=== PATIENT | male | born 1955 | race Caucasian/White ===

== ENCOUNTER 2020-09-16 15:28 | Observation (INO) ==
[2020-09-16] MEDS ORDERED: MORPHINE 2 MG/1 ML SYRINGE IV ONE (16:05)
[2020-09-16] MEDS ORDERED: ONDANSETRON 4 MG/2 ML VIAL IV ONE (16:05)
[2020-09-16 16:11] LABS: Basophils % 0.6 % (0.0-0.8); Eosinophils % 0.6 % (0.00-10.9); Hemoglobin 14.9 GM/DL (14.0-18.0); Immature Granulocytes % 0.9 %; Immature Granulocytes Absolute 0.03 #; Lymphocytes # 0.9 10*3/uL (1.4-4.0); Lymphocytes % 27.7 % (21.2-54.2); Mean Corpuscular HGB Conc 33.9 GM/DL (32-36); Mean Corpuscular Volume 89.8 FL (87-102); Mean Platelet Volume 10.1 FL (9.6-12.0); Monocytes % 22.1 % (1.7-12.7); Neutrophils % 48.1 % (38.7-73.9); Platelet Count 178 T/CUMM (130-400); Red Cell Distribution Width 12.9 % (9.3-17.3); White Blood Count 3.2 T/CUMM (4-12)
[2020-09-16 16:28] LABS: PT Patient Result 11.4 SECS (10.5-12.0)
[2020-09-16 16:31] LABS: Albumin 4.2 G/DL (3.4-5.0); Bilirubin,Total 0.6 MG/DL (0.20-1.00); Osmolality,Calculated 279.8 MOS/KG (273-304); Total Protein 7.7 G/DL (6.4-8.2)
[2020-09-16 16:40] LABS: Band Neutrophils 1 % (0-10); Eosinophils 1 % (0-10); Lymphocytes 30 % (20-55); Platelet Estimate Adequate; Segmented Neutrophils 43 % (50-85); Total Cells Counted 100
[2020-09-16] MEDS ORDERED: LORazepam 2 MG/1 ML VIAL IV STA (16:44)
[2020-09-16] MEDS ORDERED: ASPIRIN 325 MG TABLET PO STA (19:50)
[2020-09-16] MEDS ORDERED: ONDANSETRON 4 MG/2 ML VIAL IV PRN (21:14)
[2020-09-16] MEDS ORDERED: MELATONIN 3 MG TABLET PO PRN (21:14)
[2020-09-16] MEDS ORDERED: hydrALAZINE 20 MG/1 ML VIAL IV PRN (21:14)
[2020-09-16] MEDS ORDERED: NICOTINE 21 MG/24 HR PATCH TRANSDERM PRN (21:14)
[2020-09-16] MEDS ORDERED: ACETAMINOPHEN 325 MG TABLET PO PRN (21:14)
[2020-09-16] MEDS ORDERED: CALCIUM CARBONATE CHEW 500 MG TABLET PO PRN (21:14)
[2020-09-16] MEDS ORDERED: diphenhydrAMINE CAP 25 MG CAPSULE PO PRN (21:14)
[2020-09-16] MEDS ORDERED: MORPHINE 2 MG/1 ML SYRINGE IV PRN (21:14)
[2020-09-16] MEDS ORDERED: DEXTROSE 50% 25 GM/50 ML VIAL IV PRN (21:14)
[2020-09-16] MEDS ORDERED: guaiFENesin/DM ER 600-30 MG TABLET PO PRN (21:14)
[2020-09-16] MEDS ORDERED: GLUCAGON 1 MG VIAL IM PRN (21:14)
[2020-09-16] MEDS ORDERED: ENOXAPARIN 40 MG/0.4 ML SYRINGE SUBCUT SCH (21:30)
[2020-09-16 22:16] LABS: Risk Ratio 2.71; VLDL Cholesterol 15.2 MG/DL
[2020-09-16 22:18] LABS: Ferritin 108.3 ng/ml (26-388)
[2020-09-16] MEDS: SODIUM CHLORIDE 0.9% 1,000 ML IV SCH (22:51)
[2020-09-16 23:25] LABS: Bilirubin,Urine Negative (Negative); Blood, Urine Negative (Negative); Glucose,Urine (UA) >=500 mg/dL (Negative); Hyaline Casts,Urine 1 /LPF (0-3); Ketones,Urine 20 mg/dL (Negative); Mucus,Urine Occasional /LPF (Occasional); Nitrite,Urine Negative (Negative); Protein,Urine 100 MG/DL; RBC,Urine 1 /HPF (0-4); Sperm,Urine Occasional /HPF (Negative); Urine Appearance CLEAR (Clear); Urine Color Yellow (Yellow); Urine Specific Gravity 1.056 (1.001-1.035); Urine Urobilinogen < 2.0 EU/DL (0.2-1.0)
[2020-09-17] MEDS ORDERED: DEXAMETHASONE 4 MG/1 ML VIAL IV SCH (09:00)
[2020-09-17] MEDS ORDERED: FAMOTIDINE 20 MG TABLET PO SCH (09:00)
[2020-09-17] MEDS ORDERED: ZINC GLUCONATE 50 MG TABLET PO SCH (09:00)
[2020-09-17] MEDS ORDERED: CHOLECALCIFEROL 1,000 UNIT TABLET PO SCH (09:00)
[2020-09-17] MEDS ORDERED: AZITHROMYCIN 250 MG TABLET PO SCH (09:00)
[2020-09-17] MEDS ORDERED: CETIRIZINE 10 MG TABLET PO SCH (09:00)
[2020-09-17] MEDS ORDERED: ASCORBIC ACID 500 MG TABLET PO SCH (09:00)
[2020-09-17] MEDS ORDERED: INSULIN GLARGINE 100 UNIT/ML SUBCUT SCH (09:15)
[2020-09-17] MEDS ORDERED: DULAGLUTIDE 0.75 MG/0.5 ML SUBCUT SCH (09:15)
[2020-09-17] MEDS ORDERED: PANTOPRAZOLE 40 MG TABLET PO SCH (09:15)
[2020-09-17] MEDS ORDERED: lisinopriL 20 MG TABLET PO SCH (09:30)
[2020-09-17] MEDS ORDERED: ASPIRIN 325 MG TABLET PO SCH (09:30)
[2020-09-17] MEDS ORDERED: NEBIVOLOL 5 MG TABLET PO SCH (09:30)
[2020-09-17] MEDS ORDERED: RANOLAZINE 500 MG TABLET PO SCH (09:30)
[2020-09-17] MEDS ORDERED: BISOPROLOL 5 MG TABLET PO SCH (09:30)
[2020-09-17] MEDS ORDERED: FUROSEMIDE 20 MG TABLET PO SCH (09:30)
[2020-09-17] MEDS ORDERED: ROSUVASTATIN 20 MG TABLET PO SCH (09:30)
[2020-09-17] MEDS ORDERED: amLODIPine 10 MG TABLET PO SCH (09:30)
[2020-09-17] MEDS ORDERED: methylPREDNISolone SOD SUC 125 MG/2 ML VIAL IV PRN (10:00)
[2020-09-17] MEDS ORDERED: MECLIZINE 25 MG TABLET PO PRN (10:00)
[2020-09-17] MEDS ORDERED: ACETAMINOPHEN 325 MG TABLET PO PRN (10:00)
[2020-09-17] MEDS ORDERED: diphenhydrAMINE 50 MG/1 ML VIAL IV PRN ×2 (10:00)
[2020-09-17] MEDS ORDERED: ONDANSETRON 4 MG/2 ML VIAL IV PRN (10:00)
[2020-09-17] MEDS: INSULIN REGULAR 100 UNIT/ML SUBCUT SCH ×3 (10:38→17:30)
[2020-09-17] MEDS: SODIUM CHLORIDE 0.9% 1,000 ML IV SCH (12:58)
[2020-09-17] MEDS ORDERED: CASIRIVIMAB/IMDEVIMAB 1,200 MG in SODIUM CHLORIDE 0.9% 100 ML IV ONE (14:00)
[2020-09-17] MEDS ORDERED: SODIUM CHLORIDE 0.9% 200 ML IV SCH (14:00)
[2020-09-17] MEDS ORDERED: SODIUM CHLORIDE 0.9% 1,000 ML IV SCH (14:00)
[2020-09-17] MEDS ORDERED: METHOCARBAMOL 500 MG TABLET PO PRN (14:17)
[2020-09-17 15:51] VITALS: BP 156/76
[2020-09-17] MEDS ORDERED: CYCLOBENZAPRINE 10 MG TABLET PO ONE (16:54)
== END 2020-09-17 18:00 | disposition home health service (06) ==
LOC: N.EDINP 15:28 → N.ED 15:28 → SUATTDRO 21:39 → N.2E 22:01
PROVIDERS: ADMIT Internal Medicine; ATTEND Internal Medicine

== ENCOUNTER 2020-12-02 08:00 | Inpatient (IN) ==
[~2020-12-02 08:00] MED LIST: CLORAZEPATE 3.75 MG TABLET PO PRN; DEXTROSE 50% 25 GM/50 ML VIAL IV PRN; GLUCAGON 1 MG VIAL IM PRN; MORPHINE 2 MG/1 ML SYRINGE IV PRN; NITROGLYCERIN SL 0.4 MG TABLET SL PRN
[2020-12-02 13:11] LABS: Basophils % 0.6 % (0.0-0.8); Eosinophils # 0.2 10*3/uL (0.0-0.87); Hematocrit 38.8 VOL% (42.0-52.0); Hemoglobin 13.2 GM/DL (14.0-18.0); Immature Granulocytes % 0.6 %; Immature Granulocytes Absolute 0.04 #; Lymphocytes # 1.9 10*3/uL (1.4-4.0); Mean Corpuscular Volume 90.7 FL (87-102); Mean Platelet Volume 10.8 FL (9.6-12.0); Monocytes % 10.9 % (1.7-12.7); Neutrophils % 55.9 % (38.7-73.9); Platelet Count 200 T/CUMM (130-400); Red Blood Count 4.28 MC/CUMM (3.8-5.5); Red Cell Distribution Width 12.9 % (9.3-17.3); White Blood Count 6.4 T/CUMM (4-12)
[2020-12-02 13:34] LABS: Albumin 3.7 G/DL (3.4-5.0); Bilirubin,Total 0.5 MG/DL (0.20-1.00); Calcium 8.8 MG/DL (8.5-10.1); Potassium 4.4 MMOL/L (3.5-5.1)
[2020-12-02] MEDS: INSULIN REGULAR 100 UNIT/ML SUBCUT SCH ×3 (14:24→21:22)
[2020-12-02 15:26] LABS: ABG HCO3 24.3 MMOL/L (20-26); ABG Oxygen Saturation 94.4 % (95-100); ABG PCO2 43.7 MM HG (35-48); ABG PH 7.373 (7.35-7.45); ABG PO2 74.9 MM HG (80-95); ABG TCO2 22.6 MMOL/L (23-27)
[2020-12-02] MEDS: CHLORHEXIDINE 4% SOLN 118 ML BOTTLE TOP SCH ×2 (17:00→21:43)
[2020-12-02] MEDS: CHLORHEXIDINE 0.12% ORAL RINSE 60 ML BOTTLE SWISH/SPIT SCH ×2 (17:37→21:43)
[2020-12-02] MEDS ORDERED: NEBIVOLOL 5 MG TABLET PO SCH (21:00)
[2020-12-03] MEDS ORDERED: VANCOMYCIN 500 MG VIAL ONE (04:18)
[2020-12-03] MEDS ORDERED: VANCOMYCIN 1,000 MG VIAL ONE (04:18)
[2020-12-03] MEDS ORDERED: PAPAVERINE 60 MG/2 ML VIAL ONE (04:18)
[2020-12-03] MEDS: CHLORHEXIDINE 4% SOLN 118 ML BOTTLE TOP SCH (04:56)
[2020-12-03] MEDS ORDERED: CEFUROXIME INJ 1,500 MG in SODIUM CHLORIDE 0.9% 100 ML IV ONE (05:00)
[2020-12-03] MEDS ORDERED: FAMOTIDINE 20 MG TABLET PO ONE (06:00)
[2020-12-03] MEDS ORDERED: LORazepam 1 MG TABLET PO ONE (06:00)
[2020-12-03] MEDS ORDERED: HEPARIN/NACL 0.9% 2 UNITS/ML 1,000 UNIT/500 ML BAG IV ONE (06:07)
[2020-12-03] MEDS ORDERED: LACTATED RINGERS 1,000 ML IV ONE (06:07)
[2020-12-03] MEDS ORDERED: SODIUM CHLORIDE 0.9% 1,000 ML IV ONE (06:07)
[2020-12-03] MEDS ORDERED: MINERAL OIL/PETROLATUM OPH OINT 3.5 GM TUBE ONE (06:07)
[2020-12-03] MEDS ORDERED: AMINOCAPROIC ACID 5,000 MG/20 ML VIAL ONE ×2 (06:07→06:11)
[2020-12-03] MEDS ORDERED: MIDAZOLAM 10 MG/2 ML VIAL ONE ×3 (06:07→08:55)
[2020-12-03] MEDS ORDERED: SUFentanil 250 MCG/5 ML AMP ONE (06:07)
[2020-12-03] MEDS ORDERED: ETOMIDATE 40 MG/20 ML VIAL IV ONE (06:07)
[2020-12-03] MEDS ORDERED: VECURONIUM 10 MG VIAL IV ONE ×3 (06:07→09:34)
[2020-12-03] MEDS ORDERED: DESFLURANE 1 UNIT/15 MINUTE INH ONE (06:07)
[2020-12-03] MEDS ORDERED: SODIUM CHLORIDE 0.9% 500 ML IV ONE (06:07)
[2020-12-03] MEDS ORDERED: PHENYLEPHRINE DRIP 0 MG/0 ML PREMIX IV ONE (06:11)
[2020-12-03] MEDS ORDERED: PHENYLEPHRINE DRIP 20 MG/250 ML PREMIX IV ONE (06:11)
[2020-12-03 07:25] LABS: ABG HCO3 25.4 MMOL/L (20-26); ABG Oxygen Saturation 99.8 % (95-100); ABG PCO2 35.9 MM HG (35-48); ABG PH 7.446 (7.35-7.45); ABG TCO2 21.7 MMOL/L (23-27); Glucose Heart Surgery 255 MG/DL (74-106); Hematocrit Heart Surgery 38.2 PERCENT (42-52); Hemoglobin Heart Surgery 12.4 G/DL (14.0-18.0); Ionized Calcium Arterial 1.14 MMOL/L (1.21-1.46); PCO2 Patient Temp Arterial 35.9 MMHG; PH Patient Temp Arterial 7.446; Patient Temperature 37 CELCIUS; Potassium Heart/CVR 4.3 MMOL/L (3.5-5.1); Sodium Heart/CVR 139 MMOL/L (135-145)
[2020-12-03 07:30] LABS: Bilirubin,Urine Negative (Negative); Blood, Urine Negative (Negative); Glucose,Urine (UA) >=500 mg/dL (Negative); Ketones,Urine Negative (Negative); Mucus,Urine Occasional /LPF (Occasional); Nitrite,Urine Negative (Negative); Protein,Urine 100 MG/DL; RBC,Urine 1 /HPF (0-4); Urine Appearance CLEAR (Clear); Urine Color Yellow (Yellow); Urine Specific Gravity 1.023 (1.001-1.035); Urine Urobilinogen < 2.0 EU/DL (0.2-1.0)
[2020-12-03] MEDS ORDERED: PHENYLEPHRINE DRIP 40 MG/250 ML PREMIX IV ONE (08:53)
[2020-12-03] MEDS ORDERED: NITROPRUSSIDE 50 MG/2 ML VIAL ONE (08:54)
[2020-12-03 09:12] LABS: Hematocrit Heart Surgery 26.9 PERCENT (42-52); Hemoglobin Heart Surgery 8.6 G/DL (14.0-18.0); PCO2 Patient Temp Venous 37.6 MM HG; PH Patient Temp Venous 7.443; PO2 Patient Temp Venous 36.2 MM HG; Potassium Heart/CVR 5.8 MMOL/L (3.5-5.1); VBG Base Excess 1.8 MEQ/L (0-4); VBG HCO3 25.7 MEQ/L (24-28); VBG Oxygen Saturation 77.6 %; VBG PCO2 41.4 MMHG (41-51); VBG PH 7.414; VBG PO2 41.6 MMHG (17-40); VBG Total CO2 24.6 MMOL/L
[2020-12-03] MEDS ORDERED: CALCIUM CHLORIDE 1,000 MG/10 ML VIAL IV ONE (09:31)
[2020-12-03] MEDS ORDERED: SUFentanil 50 MCG/ML AMP ONE (09:32)
[2020-12-03 09:45] LABS: Hematocrit Heart Surgery 29.5 PERCENT (42-52); Hemoglobin Heart Surgery 9.5 G/DL (14.0-18.0); PCO2 Patient Temp Venous 35.1 MM HG; PH Patient Temp Venous 7.458; Potassium Heart/CVR 5.8 MMOL/L (3.5-5.1); VBG Base Excess 1.3 MEQ/L (0-4); VBG HCO3 25.4 MEQ/L (24-28); VBG Oxygen Saturation 81.7 %; VBG PCO2 40.6 MMHG (41-51); VBG PH 7.414; VBG PO2 45.5 MMHG (17-40); VBG Total CO2 23.8 MMOL/L
[2020-12-03] MEDS ORDERED: DEXTROSE 5% KCL 20 MEQ 20 MEQ/1,000 ML BAG IV ONE (10:32)
[2020-12-03] MEDS ORDERED: MANNITOL 100 GM/500 ML BAG IV ONE (10:32)
[2020-12-03] MEDS ORDERED: methylPREDNISolone SOD SUC 1,000 MG/8 ML VIAL ONE (10:32)
[2020-12-03] MEDS ORDERED: LIDOCAINE 2% 5 ML VIAL ONE (10:32)
[2020-12-03] MEDS ORDERED: ALBUMIN 25% 25 GM/100 ML VIAL IV ONE (10:32)
[2020-12-03] MEDS ORDERED: MAGNESIUM SULFATE 5 GM/10 ML VIAL IV ONE (10:32)
[2020-12-03] MEDS ORDERED: SODIUM BICARBONATE 50 MEQ/50 ML VIAL IV ONE (10:33)
[2020-12-03] MEDS ORDERED: PROTAMINE SULFATE 250 MG/25 ML VIAL IV ONE (10:33)
[2020-12-03] MEDS ORDERED: ALBUMIN 5% 12.5 GM/250 ML VIAL IV ONE (10:33)
[2020-12-03] MEDS ORDERED: FUROSEMIDE 20 MG/2 ML VIAL ONE (10:33)
[2020-12-03] MEDS ORDERED: HEPARIN 10,000 UNIT/10 ML VIAL ONE (10:33)
[2020-12-03] MEDS ORDERED: DOBUTamine 500 MG/250 ML PREMIX IV ONE ×2 (10:41→11:11)
[2020-12-03 10:46] LABS: ABG Base Excess -1.9 MMOL/L (-2.5-2.5); ABG HCO3 22.8 MMOL/L (20-26); ABG Oxygen Saturation 99.4 % (95-100); ABG PCO2 37.3 MM HG (35-48); ABG PH 7.391 (7.35-7.45); ABG TCO2 20.6 MMOL/L (23-27); Glucose Heart Surgery 380 MG/DL (74-106); Hematocrit Heart Surgery 30.6 PERCENT (42-52); Hemoglobin Heart Surgery 9.9 G/DL (14.0-18.0); Ionized Calcium Arterial 1.26 MMOL/L (1.21-1.46); PCO2 Patient Temp Arterial 37.3 MMHG; PH Patient Temp Arterial 7.391; Patient Temperature 37 CELCIUS; Potassium Heart/CVR 4.8 MMOL/L (3.5-5.1); Sodium Heart/CVR 133 MMOL/L (135-145)
[2020-12-03] MEDS ORDERED: DOBUTamine 500 MG/250 ML PREMIX IV SCH (11:00)
[2020-12-03] MEDS ORDERED: SEVOFLURANE 1 UNIT/15 MINUTE INH ONE (11:13)
[2020-12-03] MEDS: PHENYLEPHRINE DRIP 40 MG/250 ML PREMIX IV PRN (11:29)
[2020-12-03] MEDS: LACTATED RINGERS 250 ML IV PRN ×5 (11:29→21:07)
[2020-12-03] MEDS ORDERED: MIDAZOLAM 2 MG/2 ML VIAL IV PRN (11:43)
[2020-12-03] MEDS ORDERED: CHLORHEXIDINE 4% SOLN 118 ML BOTTLE TOP PRN (11:43)
[2020-12-03] MEDS ORDERED: NITROPRUSSIDE 100 MG in DEXTROSE 5% 250 ML IV PRN (11:43)
[2020-12-03] MEDS ORDERED: INSULIN REGULAR 100 UNIT/ML IV ONE ×2 (11:43→16:58)
[2020-12-03] MEDS ORDERED: ACETAMINOPHEN 650 MG SUPP RECTAL PRN (11:43)
[2020-12-03] MEDS ORDERED: VECURONIUM 10 MG VIAL IV PRN ×2 (11:43)
[2020-12-03] MEDS ORDERED: MIDAZOLAM 10 MG/2 ML VIAL IV PRN (11:43)
[2020-12-03] MEDS ORDERED: CALCIUM CHLORIDE 1,000 MG/10 ML SYRINGE IV PRN (11:43)
[2020-12-03] MEDS ORDERED: DEXTROSE 50% 25 GM/50 ML VIAL IV PRN ×2 (11:43)
[2020-12-03] MEDS ORDERED: MAGNESIUM SULF RIDER 4 GM/100 ML PREMIX IV PRN (11:43)
[2020-12-03] MEDS ORDERED: MAGNESIUM SULF RIDER 2 GM/50 ML PREMIX IV PRN (11:43)
[2020-12-03] MEDS ORDERED: POTASSIUM CHLORIDE RIDER 10 MEQ/100 ML PREMIX IV PRN (11:43)
[2020-12-03 11:57] LABS: ABG Base Excess -2.2 MMOL/L (-2.5-2.5); ABG HCO3 22.5 MMOL/L (20-26); ABG Oxygen Saturation 95.9 % (95-100); ABG PCO2 39.5 MM HG (35-48); ABG PO2 83.2 MM HG (80-95); ABG TCO2 20.7 MMOL/L (23-27); Glucose Heart Surgery 388 MG/DL (74-106); Hematocrit Heart Surgery 31.9 PERCENT (42-52); Hemoglobin Heart Surgery 10.3 G/DL (14.0-18.0)
[2020-12-03] MEDS ORDERED: NITROGLYCERIN DRIP 50 MG/250 ML BOTTLE IV PRN (11:57)
[2020-12-03 12:05] LABS: Basophils % 0.3 % (0.0-0.8); Eosinophils # 0.1 10*3/uL (0.0-0.87); Eosinophils % 0.9 % (0.00-10.9); Hematocrit 30.2 VOL% (42.0-52.0); Immature Granulocytes % 0.7 %; Immature Granulocytes Absolute 0.09 #; Lymphocytes # 2.2 10*3/uL (1.4-4.0); Lymphocytes % 17.5 % (21.2-54.2); Mean Corpuscular HGB Conc 33.1 GM/DL (32-36); Mean Corpuscular Volume 91.5 FL (87-102); Mean Platelet Volume 10.7 FL (9.6-12.0); Monocytes % 6.1 % (1.7-12.7); Neutrophils % 74.5 % (38.7-73.9); Platelet Count 176 T/CUMM (130-400); Red Cell Distribution Width 12.9 % (9.3-17.3)
[2020-12-03 12:06] LABS: White Blood Count 12.3 T/CUMM (4-12)
[2020-12-03 12:12] LABS: INR 1.2; PT Patient Result 13.1 SECS (10.5-12.0); Partial Thromboplastin Time 27.4 SECS (23.8-32.1)
[2020-12-03 12:20] LABS: CKMB % 5.3 %
[2020-12-03 12:22] LABS: High Sensitive Troponin I* 2688.3 ng/L (0-78)
[2020-12-03 12:23] LABS: Albumin 3.2 G/DL (3.4-5.0); Bilirubin,Total 0.9 MG/DL (0.20-1.00); Calcium 8.3 MG/DL (8.5-10.1); Osmolality,Calculated 293.7 MOS/KG (273-304); Total Protein 5.2 G/DL (6.4-8.2)
[2020-12-03] MEDS: SODIUM CHLORIDE 0.45% 1,000 ML IV SCH ×2 (12:53)
[2020-12-03] MEDS: INSULIN REGULAR DRIP 100 ML IV SCH ×2 (13:10→20:46)
[2020-12-03 13:30] LABS: ABG Base Excess -4.1 MMOL/L (-2.5-2.5); ABG Oxygen Saturation 97.6 % (95-100); ABG PCO2 38.6 MM HG (35-48); ABG PH 7.347 (7.35-7.45); ABG TCO2 19.3 MMOL/L (23-27); Glucose Heart Surgery 395 MG/DL (74-106); Hematocrit Heart Surgery 32.2 PERCENT (42-52); Hemoglobin Heart Surgery 10.4 G/DL (14.0-18.0); Potassium Heart/CVR 3.6 MMOL/L (3.5-5.1)
[2020-12-03] MEDS: POTASSIUM CHLORIDE RIDER 20 MEQ/100 ML PREMIX IV PRN ×3 (13:36→20:45)
[2020-12-03] MEDS: INSULIN REGULAR 100 UNIT/ML IV PRN ×4 (15:32→22:26)
[2020-12-03] MEDS: MORPHINE 10 MG/1 ML VIAL IV PRN (15:57)
[2020-12-03 16:42] LABS: ABG Base Excess -4.2 MMOL/L (-2.5-2.5); ABG HCO3 20.9 MMOL/L (20-26); ABG Oxygen Saturation 97.3 % (95-100); ABG PH 7.315 (7.35-7.45); ABG TCO2 19.9 MMOL/L (23-27); Glucose Heart Surgery 351 MG/DL (74-106); Hematocrit Heart Surgery 33.2 PERCENT (42-52); Hemoglobin Heart Surgery 10.8 G/DL (14.0-18.0)
[2020-12-03 18:15] LABS: ABG Base Excess -3.4 MMOL/L (-2.5-2.5); ABG HCO3 21.6 MMOL/L (20-26); ABG Oxygen Saturation 96.7 % (95-100); ABG PCO2 41.6 MM HG (35-48); ABG PH 7.337 (7.35-7.45); ABG PO2 92.6 MM HG (80-95); ABG TCO2 20.1 MMOL/L (23-27); Glucose Heart Surgery 319 MG/DL (74-106); Potassium Heart/CVR 4.1 MMOL/L (3.5-5.1)
[2020-12-03] MEDS ORDERED: INSULIN GLARGINE 100 UNIT/ML SUBCUT ONE (18:17)
[2020-12-03] MEDS ORDERED: FUROSEMIDE 40 MG/4 ML VIAL IV ONE (18:23)
[2020-12-03] MEDS: CEFUROXIME INJ 1,500 MG in SODIUM CHLORIDE 0.9% 100 ML IV SCH (18:44)
[2020-12-03 19:51] LABS: ABG Base Excess -5.7 MMOL/L (-2.5-2.5); ABG HCO3 19.7 MMOL/L (20-26); ABG Oxygen Saturation 96.8 % (95-100); ABG PCO2 39.8 MM HG (35-48); ABG PH 7.313 (7.35-7.45); ABG PO2 96.9 MM HG (80-95); ABG TCO2 18.3 MMOL/L (23-27); Glucose Heart Surgery 294 MG/DL (74-106); Hematocrit Heart Surgery 34.2 PERCENT (42-52); Hemoglobin Heart Surgery 11.1 G/DL (14.0-18.0); Potassium Heart/CVR 3.8 MMOL/L (3.5-5.1)
[2020-12-03] MEDS: ALBUMIN 5% 12.5 GM/250 ML VIAL IV PRN (20:36)
[2020-12-03 21:20] LABS: ABG HCO3 20.3 MMOL/L (20-26); ABG Oxygen Saturation 97.8 % (95-100); ABG PCO2 38.9 MM HG (35-48); ABG TCO2 18.7 MMOL/L (23-27); Glucose Heart Surgery 282 MG/DL (74-106); Hematocrit Heart Surgery 32.4 PERCENT (42-52); Hemoglobin Heart Surgery 10.5 G/DL (14.0-18.0); Potassium Heart/CVR 4.6 MMOL/L (3.5-5.1)
[2020-12-03 22:03] LABS: CKMB % 4.9 %
[2020-12-03 22:06] LABS: High Sensitive Troponin I* 37427.8 ng/L (0-78)
[2020-12-03 22:24] LABS: ABG Base Excess -4.2 MMOL/L (-2.5-2.5); ABG HCO3 20.9 MMOL/L (20-26); ABG Oxygen Saturation 97.5 % (95-100); ABG PCO2 43.1 MM HG (35-48); ABG PH 7.314 (7.35-7.45); Glucose Heart Surgery 268 MG/DL (74-106); Hematocrit Heart Surgery 32.7 PERCENT (42-52); Hemoglobin Heart Surgery 10.6 G/DL (14.0-18.0); Potassium Heart/CVR 4.1 MMOL/L (3.5-5.1)
[2020-12-03] MEDS: ONDANSETRON 4 MG/2 ML VIAL IV PRN (22:26)
[2020-12-03 23:47] LABS: ABG Base Excess -2.2 MMOL/L (-2.5-2.5); ABG HCO3 22.6 MMOL/L (20-26); ABG Oxygen Saturation 97.7 % (95-100); ABG PCO2 41.1 MM HG (35-48); ABG PH 7.359 (7.35-7.45); Glucose Heart Surgery 245 MG/DL (74-106); Hematocrit Heart Surgery 32.5 PERCENT (42-52); Hemoglobin Heart Surgery 10.5 G/DL (14.0-18.0); Potassium Heart/CVR 4.2 MMOL/L (3.5-5.1)
[2020-12-04] MEDS: CHLORHEXIDINE 0.12% ORAL RINSE 60 ML BOTTLE SWISH/SPIT SCH ×4 (00:18→20:33)
[2020-12-04] MEDS: INSULIN REGULAR 100 UNIT/ML IV PRN ×2 (00:47→01:26)
[2020-12-04] MEDS ORDERED: FUROSEMIDE 40 MG/4 ML VIAL IV ONE ×3 (01:07→15:39)
[2020-12-04] MEDS: MORPHINE 10 MG/1 ML VIAL IV PRN (01:10)
[2020-12-04 02:03] LABS: ABG Base Excess -1.4 MMOL/L (-2.5-2.5); ABG HCO3 23.2 MMOL/L (20-26); ABG Oxygen Saturation 96.8 % (95-100); ABG PCO2 46.1 MM HG (35-48); ABG PH 7.336 (7.35-7.45); ABG PO2 92.5 MM HG (80-95); ABG TCO2 22.5 MMOL/L (23-27); Glucose Heart Surgery 203 MG/DL (74-106); Hematocrit Heart Surgery 31.5 PERCENT (42-52); Hemoglobin Heart Surgery 10.2 G/DL (14.0-18.0); Potassium Heart/CVR 3.9 MMOL/L (3.5-5.1)
[2020-12-04] MEDS: INSULIN REGULAR DRIP 100 ML IV SCH (02:57)
[2020-12-04 04:00] LABS: ABG Base Excess 0.4 MMOL/L (-2.5-2.5); ABG HCO3 24.8 MMOL/L (20-26); ABG Oxygen Saturation 96.5 % (95-100); ABG PCO2 45.6 MM HG (35-48); ABG PH 7.366 (7.35-7.45); ABG PO2 86.4 MM HG (80-95); ABG TCO2 23.7 MMOL/L (23-27); Glucose Heart Surgery 146 MG/DL (74-106); Hematocrit Heart Surgery 32.2 PERCENT (42-52); Hemoglobin Heart Surgery 10.4 G/DL (14.0-18.0); Potassium Heart/CVR 3.8 MMOL/L (3.5-5.1)
[2020-12-04 04:02] LABS: Basophils % 0.1 % (0.0-0.8); Hematocrit 30.2 VOL% (42.0-52.0); Immature Granulocytes % 0.7 %; Lymphocytes # 0.9 10*3/uL (1.4-4.0); Lymphocytes % 5.9 % (21.2-54.2); Mean Corpuscular HGB Conc 33.1 GM/DL (32-36); Mean Corpuscular Volume 92.4 FL (87-102); Mean Platelet Volume 10.6 FL (9.6-12.0); Neutrophils % 84.3 % (38.7-73.9); Platelet Count 155 T/CUMM (130-400); Red Blood Count 3.27 MC/CUMM (3.8-5.5); Red Cell Distribution Width 13.2 % (9.3-17.3); White Blood Count 15.2 T/CUMM (4-12)
[2020-12-04 04:23] LABS: Albumin 3.6 G/DL (3.4-5.0); Bilirubin,Direct 0.13 MG/DL (0.0-0.20); Bilirubin,Total 0.7 MG/DL (0.20-1.00); Calcium 8.7 MG/DL (8.5-10.1); Osmolality,Calculated 286.3 MOS/KG (273-304); Potassium 3.9 MMOL/L (3.5-5.1); Total Protein 5.9 G/DL (6.4-8.2)
[2020-12-04 04:36] LABS: CKMB % 5.7 %
[2020-12-04 04:39] LABS: High Sensitive Troponin I* 57410.7 ng/L (0-78)
[2020-12-04] MEDS: CEFUROXIME INJ 1,500 MG in SODIUM CHLORIDE 0.9% 100 ML IV SCH ×2 (06:00→18:16)
[2020-12-04] MEDS: POTASSIUM CHLORIDE RIDER 20 MEQ/100 ML PREMIX IV PRN (06:08)
[2020-12-04] MEDS ORDERED: KETOROLAC 30 MG/1 ML VIAL IV ONE (07:00)
[2020-12-04] MEDS ORDERED: INSULIN GLARGINE 100 UNIT/ML SUBCUT SCH (08:51)
[2020-12-04] MEDS ORDERED: METOPROLOL TARTRATE 25 MG TABLET PO SCH (09:00)
[2020-12-04] MEDS: PANTOPRAZOLE 40 MG TABLET PO SCH (09:09)
[2020-12-04] MEDS: ASPIRIN EC 81 MG TABLET PO SCH (09:09)
[2020-12-04] MEDS: INSULIN REGULAR 100 UNIT/ML SUBCUT SCH (09:17)
[2020-12-04] MEDS: VITAMIN E 1000 UNIT CAPSULE PO SCH ×2 (09:40→20:34)
[2020-12-04] MEDS: PHENYLEPHRINE DRIP 40 MG/250 ML PREMIX IV PRN ×2 (10:25→21:41)
[2020-12-04] MEDS: ALBUMIN 5% 12.5 GM/250 ML VIAL IV PRN ×3 (11:23→19:50)
[2020-12-04] MEDS ORDERED: INSULIN LISPRO 100 UNIT/ML SUBCUT SCH (11:30)
[2020-12-04] MEDS: KETOROLAC 30 MG/1 ML VIAL IV SCH ×2 (12:00→18:18)
[2020-12-04 13:11] LABS: CKMB % 5.9 %; High Sensitive Troponin I* 66471.1 ng/L (0-78)
[2020-12-04] MEDS: HYDROmorphone 2 MG/1 ML VIAL IV PRN (13:31)
[2020-12-04] MEDS: SODIUM CHLORIDE 0.45% 1,000 ML IV SCH ×3 (13:50→20:31)
[2020-12-04] MEDS ORDERED: DEXTROSE 50% 25 GM/50 ML VIAL IV ONE (14:10)
[2020-12-04] MEDS ORDERED: INSULIN REGULAR 100 UNIT/ML IV ONE (14:10)
[2020-12-04] MEDS: DOBUTamine 500 MG/250 ML PREMIX IV PRN (14:21)
[2020-12-04] MEDS: SODIUM CHLORIDE 0.9% 1,000 ML IV SCH ×2 (14:22→14:23)
[2020-12-04 15:59] LABS: ABG Base Excess -3.3 MMOL/L (-2.5-2.5); ABG HCO3 21.5 MMOL/L (20-26); ABG Oxygen Saturation 90.3 % (95-100); ABG PH 7.334 (7.35-7.45); ABG PO2 64.2 MM HG (80-95); ABG TCO2 20.7 MMOL/L (23-27); Glucose Heart Surgery 405 MG/DL (74-106); Hematocrit Heart Surgery 27.8 PERCENT (42-52); Potassium Heart/CVR 5.3 MMOL/L (3.5-5.1)
[2020-12-04 16:05] LABS: VBG Base Excess -3.3 MEQ/L (0-4); VBG HCO3 21.4 MEQ/L (24-28); VBG PCO2 46.2 MMHG (41-51); VBG PH 7.306; VBG PO2 47.1 MMHG (17-40); VBG Total CO2 21.5 MMOL/L
[2020-12-04] MEDS: INSULIN LISPRO 100 UNIT/ML SUBCUT SCH ×3 (16:36→20:32)
[2020-12-04 17:21] LABS: CKMB % 5.7 %
[2020-12-04 17:24] LABS: High Sensitive Troponin I* 58444.3 ng/L (0-78)
[2020-12-04] MEDS: FUROSEMIDE INJ 100 MG in SODIUM CHLORIDE 0.9% 90 ML IV SCH ×2 (17:32→22:22)
[2020-12-04] MEDS ORDERED: INSULIN GLARGINE 100 UNIT/ML SUBCUT ONE (18:33)
[2020-12-04] MEDS ORDERED: INSULIN LISPRO 100 UNIT/ML SUBCUT ONE (18:36)
[2020-12-04] MEDS ORDERED: ALBUMIN 25% 12.5 GM/50 ML VIAL IV ONE (19:25)
[2020-12-05] MEDS: KETOROLAC 30 MG/1 ML VIAL IV SCH ×2 (00:54→06:08)
[2020-12-05] MEDS: ONDANSETRON 4 MG/2 ML VIAL IV PRN (00:54)
[2020-12-05] MEDS: HYDROmorphone 2 MG/1 ML VIAL IV PRN ×2 (00:55→17:19)
[2020-12-05] MEDS: ALBUMIN 5% 12.5 GM/250 ML VIAL IV PRN ×3 (02:16→10:55)
[2020-12-05] MEDS: FUROSEMIDE INJ 100 MG in SODIUM CHLORIDE 0.9% 90 ML IV SCH ×2 (03:22→08:36)
[2020-12-05 03:36] LABS: Basophils % 0.1 % (0.0-0.8); Hematocrit 26.9 VOL% (42.0-52.0); Hemoglobin 8.5 GM/DL (14.0-18.0); Immature Granulocytes % 0.6 %; Lymphocytes # 2.2 10*3/uL (1.4-4.0); Mean Corpuscular HGB Conc 31.6 GM/DL (32-36); Mean Corpuscular Volume 96.8 FL (87-102); Mean Platelet Volume 10.7 FL (9.6-12.0); Monocytes % 10.2 % (1.7-12.7); Neutrophils % 75.1 % (38.7-73.9); Platelet Count 130 T/CUMM (130-400); Red Blood Count 2.78 MC/CUMM (3.8-5.5); Red Cell Distribution Width 13.7 % (9.3-17.3); White Blood Count 15.5 T/CUMM (4-12)
[2020-12-05 03:53] LABS: Albumin 3.4 G/DL (3.4-5.0); Bilirubin,Direct 0.14 MG/DL (0.0-0.20); Bilirubin,Total 0.4 MG/DL (0.20-1.00); Calcium 7.9 MG/DL (8.5-10.1); Osmolality,Calculated 292.5 MOS/KG (273-304); Potassium 4.1 MMOL/L (3.5-5.1)
[2020-12-05] MEDS: oxyCODONE/ACETAMINOPHEN 5-325 MG TABLET PO PRN ×2 (05:28→21:16)
[2020-12-05] MEDS ORDERED: FUROSEMIDE 40 MG/4 ML VIAL IV ONE (06:00)
[2020-12-05] MEDS: INSULIN GLARGINE 100 UNIT/ML SUBCUT SCH ×2 (07:47→21:06)
[2020-12-05] MEDS: INSULIN LISPRO 100 UNIT/ML SUBCUT SCH ×4 (07:48→21:07)
[2020-12-05] MEDS: ASPIRIN EC 81 MG TABLET PO SCH (08:02)
[2020-12-05] MEDS: PANTOPRAZOLE 40 MG TABLET PO SCH (08:02)
[2020-12-05] MEDS: CHLORHEXIDINE 0.12% ORAL RINSE 60 ML BOTTLE SWISH/SPIT SCH ×2 (08:05→21:07)
[2020-12-05] MEDS ORDERED: FUROSEMIDE 40 MG/4 ML VIAL IV SCH (09:00)
[2020-12-05] MEDS: VITAMIN E 1000 UNIT CAPSULE PO SCH ×2 (09:07→21:17)
[2020-12-05] MEDS ORDERED: CLORAZEPATE 3.75 MG TABLET PO ONE (10:11)
[2020-12-05] MEDS ORDERED: SODIUM CHLORIDE 0.9% 500 ML IV SCH (10:30)
[2020-12-05] MEDS: SODIUM CHLORIDE 0.9% 1,000 ML IV SCH ×2 (12:31→17:58)
[2020-12-05] MEDS: SODIUM CHLORIDE 0.45% 1,000 ML IV SCH ×2 (12:32)
[2020-12-05] MEDS: FUROSEMIDE 40 MG/4 ML VIAL IV SCH ×2 (13:12→21:06)
[2020-12-05] MEDS: DOBUTamine 500 MG/250 ML PREMIX IV PRN (14:45)
[2020-12-05] MEDS ORDERED: POLYETHYLENE GLYCOL POWDER 17 GM PACK PO PRN (17:17)
[2020-12-05] MEDS: DOCUSATE SODIUM 100 MG CAPSULE PO SCH ×2 (17:58→21:06)
[2020-12-05] MEDS ORDERED: INSULIN GLARGINE 100 UNIT/ML SUBCUT SCH (21:00)
[2020-12-06] MEDS: HYDROmorphone 2 MG/1 ML VIAL IV PRN (02:12)
[2020-12-06] MEDS: SODIUM CHLORIDE 0.9% 1,000 ML IV SCH ×3 (03:28→23:34)
[2020-12-06 04:41] LABS: Basophils % 0.1 % (0.0-0.8); Eosinophils % 0.1 % (0.00-10.9); Hematocrit 25.3 VOL% (42.0-52.0); Hemoglobin 8.1 GM/DL (14.0-18.0); Immature Granulocytes % 0.8 %; Immature Granulocytes Absolute 0.09 #; Lymphocytes # 1.8 10*3/uL (1.4-4.0); Lymphocytes % 15.3 % (21.2-54.2); Mean Corpuscular Volume 96.9 FL (87-102); Mean Platelet Volume 11.2 FL (9.6-12.0); Monocytes % 9.8 % (1.7-12.7); Neutrophils % 73.9 % (38.7-73.9); Platelet Count 119 T/CUMM (130-400); Red Blood Count 2.61 MC/CUMM (3.8-5.5); Red Cell Distribution Width 13.3 % (9.3-17.3)
[2020-12-06 05:01] LABS: Albumin 3.3 G/DL (3.4-5.0); Bilirubin,Direct 0.12 MG/DL (0.0-0.20); Bilirubin,Total 0.6 MG/DL (0.20-1.00); Calcium 7.7 MG/DL (8.5-10.1); Total Protein 5.9 G/DL (6.4-8.2)
[2020-12-06] MEDS: FUROSEMIDE 40 MG/4 ML VIAL IV SCH ×3 (05:32→21:03)
[2020-12-06] MEDS: oxyCODONE/ACETAMINOPHEN 5-325 MG TABLET PO PRN ×3 (06:28→19:39)
[2020-12-06] MEDS: CLORAZEPATE 3.75 MG TABLET PO PRN ×2 (06:51→20:58)
[2020-12-06] MEDS: INSULIN LISPRO 100 UNIT/ML SUBCUT SCH ×4 (07:48→20:57)
[2020-12-06] MEDS: INSULIN GLARGINE 100 UNIT/ML SUBCUT SCH ×2 (07:48→20:57)
[2020-12-06] MEDS: DOCUSATE SODIUM 100 MG CAPSULE PO SCH ×2 (08:08→20:56)
[2020-12-06] MEDS: PANTOPRAZOLE 40 MG TABLET PO SCH (08:09)
[2020-12-06] MEDS: ASPIRIN EC 81 MG TABLET PO SCH (08:09)
[2020-12-06] MEDS: CHLORHEXIDINE 0.12% ORAL RINSE 60 ML BOTTLE SWISH/SPIT SCH ×2 (08:10→20:58)
[2020-12-06] MEDS: VITAMIN E 1000 UNIT CAPSULE PO SCH ×2 (08:11→22:19)
[2020-12-07] MEDS: HYDROmorphone 2 MG/1 ML VIAL IV PRN (02:38)
[2020-12-07 04:09] LABS: Basophils % 0.2 % (0.0-0.8); Eosinophils # 0.1 10*3/uL (0.0-0.87); Eosinophils % 0.5 % (0.00-10.9); Hematocrit 25.1 VOL% (42.0-52.0); Immature Granulocytes % 0.9 %; Immature Granulocytes Absolute 0.11 #; Lymphocytes # 1.8 10*3/uL (1.4-4.0); Lymphocytes % 13.9 % (21.2-54.2); Mean Corpuscular HGB Conc 31.9 GM/DL (32-36); Mean Corpuscular Volume 96.2 FL (87-102); Mean Platelet Volume 11.3 FL (9.6-12.0); Monocytes % 9.3 % (1.7-12.7); Neutrophils % 75.2 % (38.7-73.9); Platelet Count 157 T/CUMM (130-400); Red Blood Count 2.61 MC/CUMM (3.8-5.5); Red Cell Distribution Width 13.2 % (9.3-17.3); White Blood Count 12.8 T/CUMM (4-12)
[2020-12-07 05:02] LABS: Calcium 7.7 MG/DL (8.5-10.1)
[2020-12-07] MEDS: FUROSEMIDE 40 MG/4 ML VIAL IV SCH ×3 (06:23→20:50)
[2020-12-07] MEDS: ONDANSETRON 4 MG/2 ML VIAL IV PRN (07:28)
[2020-12-07] MEDS: ASPIRIN EC 81 MG TABLET PO SCH (08:11)
[2020-12-07] MEDS: PANTOPRAZOLE 40 MG TABLET PO SCH (08:11)
[2020-12-07] MEDS: DOCUSATE SODIUM 100 MG CAPSULE PO SCH ×2 (08:11→20:49)
[2020-12-07] MEDS: INSULIN GLARGINE 100 UNIT/ML SUBCUT SCH ×2 (08:12→20:51)
[2020-12-07] MEDS: oxyCODONE/ACETAMINOPHEN 5-325 MG TABLET PO PRN ×3 (08:12→20:49)
[2020-12-07] MEDS: INSULIN LISPRO 100 UNIT/ML SUBCUT SCH ×4 (08:13→20:50)
[2020-12-07] MEDS: CHLORHEXIDINE 0.12% ORAL RINSE 60 ML BOTTLE SWISH/SPIT SCH ×2 (08:13→20:51)
[2020-12-07 09:08] LABS: Hematocrit Heart Surgery 29.2 PERCENT (42-52); Hemoglobin Heart Surgery 9.4 G/DL (14.0-18.0); PCO2 Patient Temp Venous 44.6 MM HG; PH Patient Temp Venous 7.344; PO2 Patient Temp Venous 29.1 MM HG; Potassium Heart/CVR 4.3 MMOL/L (3.5-5.1); VBG Base Excess -1.5 MEQ/L (0-4); VBG HCO3 22.3 MEQ/L (24-28); VBG Oxygen Saturation 41.5 %; VBG PCO2 44.6 MMHG (41-51); VBG PH 7.344; VBG PO2 29.1 MMHG (17-40); VBG Total CO2 22.6 MMOL/L
[2020-12-07] MEDS: SODIUM CHLORIDE 0.9% 1,000 ML IV SCH ×2 (09:47→20:51)
[2020-12-07] MEDS: VITAMIN E 1000 UNIT CAPSULE PO SCH ×2 (09:48→21:01)
[2020-12-07] MEDS ORDERED: SODIUM PHOSPHATE ENEMA 133 ML BOTTLE RECTAL PRN (12:46)
[2020-12-07] MEDS: CLORAZEPATE 3.75 MG TABLET PO PRN (20:49)
[2020-12-08] MEDS: SODIUM CHLORIDE 0.9% 1,000 ML IV SCH (01:12)
[2020-12-08] MEDS: oxyCODONE/ACETAMINOPHEN 5-325 MG TABLET PO PRN ×4 (03:30→23:28)
[2020-12-08 04:01] LABS: Basophils % 0.2 % (0.0-0.8); Eosinophils # 0.1 10*3/uL (0.0-0.87); Eosinophils % 0.5 % (0.00-10.9); Hemoglobin 8.3 GM/DL (14.0-18.0); Immature Granulocytes % 1.1 %; Immature Granulocytes Absolute 0.15 #; Lymphocytes # 2.5 10*3/uL (1.4-4.0); Lymphocytes % 19.2 % (21.2-54.2); Mean Corpuscular HGB Conc 31.9 GM/DL (32-36); Mean Corpuscular Volume 95.2 FL (87-102); Mean Platelet Volume 10.8 FL (9.6-12.0); Monocytes % 12.1 % (1.7-12.7); NRBC # 0.03 10*3/uL; Neutrophils % 66.9 % (38.7-73.9); Platelet Count 185 T/CUMM (130-400); Red Blood Count 2.73 MC/CUMM (3.8-5.5); Red Cell Distribution Width 13.3 % (9.3-17.3); White Blood Count 13.2 T/CUMM (4-12)
[2020-12-08 04:11] LABS: Albumin 2.8 G/DL (3.4-5.0); Bilirubin,Total 0.4 MG/DL (0.20-1.00); Calcium 7.7 MG/DL (8.5-10.1); Osmolality,Calculated 287.7 MOS/KG (273-304); Potassium 3.7 MMOL/L (3.5-5.1); Total Protein 5.7 G/DL (6.4-8.2)
[2020-12-08] MEDS: INSULIN LISPRO 100 UNIT/ML SUBCUT SCH ×7 (08:33→20:46)
[2020-12-08] MEDS: INSULIN GLARGINE 100 UNIT/ML SUBCUT SCH (08:34)
[2020-12-08] MEDS: PANTOPRAZOLE 40 MG TABLET PO SCH (08:36)
[2020-12-08] MEDS: DOCUSATE SODIUM 100 MG CAPSULE PO SCH (08:36)
[2020-12-08] MEDS: ASPIRIN EC 81 MG TABLET PO SCH (08:36)
[2020-12-08] MEDS: FUROSEMIDE 40 MG/4 ML VIAL IV SCH (08:37)
[2020-12-08] MEDS: CHLORHEXIDINE 0.12% ORAL RINSE 60 ML BOTTLE SWISH/SPIT SCH ×2 (08:38→20:46)
[2020-12-08] MEDS: VITAMIN E 1000 UNIT CAPSULE PO SCH (08:39)
[2020-12-08] MEDS: HYDROmorphone 2 MG/1 ML VIAL IV PRN (11:00)
[2020-12-08] MEDS ORDERED: DEXTROSE 50% 25 GM/50 ML VIAL IV PRN ×2 (12:51)
[2020-12-08] MEDS ORDERED: MAGNESIUM SULF RIDER 2 GM/50 ML PREMIX IV PRN (12:51)
[2020-12-08] MEDS ORDERED: MAGNESIUM SULF RIDER 4 GM/100 ML PREMIX IV PRN (12:51)
[2020-12-08] MEDS ORDERED: ZALEPLON 5 MG CAPSULE PO PRN (12:51)
[2020-12-08] MEDS ORDERED: ACETAMINOPHEN 325 MG TABLET PO PRN (12:51)
[2020-12-08] MEDS ORDERED: GLUCAGON 1 MG VIAL IM PRN ×2 (12:51)
[2020-12-08] MEDS ORDERED: ALUMINUM/MAGNES/SIMETH MAX STR 30 ML UDCUP PO PRN (12:51)
[2020-12-08] MEDS ORDERED: SODIUM CHLOR 0.45% KCL 20 MEQ 20 MEQ/1,000 ML BAG IV SCH (12:51)
[2020-12-08] MEDS ORDERED: POTASSIUM CHLORIDE 20 MEQ TABLET PO PRN (12:51)
[2020-12-08] MEDS: MAGNESIUM OXIDE 400 MG TABLET PO SCH (20:45)
[2020-12-08] MEDS: ROSUVASTATIN 20 MG TABLET PO SCH (20:46)
[2020-12-08] MEDS: metFORMIN 500 MG TABLET PO SCH (20:46)
[2020-12-08] MEDS: NEBIVOLOL 5 MG TABLET PO SCH (20:46)
[2020-12-08] MEDS: VITAMIN E 400 UNIT CAPSULE PO SCH (20:46)
[2020-12-09] MEDS: FUROSEMIDE 40 MG/4 ML VIAL IV ONE ×2 (01:35→02:02)
[2020-12-09 02:44] LABS: Albumin 2.7 G/DL (3.4-5.0); Bilirubin,Direct 0.2 MG/DL (0.0-0.20); Bilirubin,Indirect 0.3 MG/DL (0.0-1.0); Bilirubin,Total 0.5 MG/DL (0.20-1.00); CKMB % 4.6 %; Osmolality,Calculated 289.1 MOS/KG (273-304); Potassium 4.4 MMOL/L (3.5-5.1); Total Protein 5.9 G/DL (6.4-8.2)
[2020-12-09 02:50] LABS: High Sensitive Troponin I* 21639.7 ng/L (0-78)
[2020-12-09] MEDS: oxyCODONE/ACETAMINOPHEN 5-325 MG TABLET PO PRN ×3 (03:56→13:35)
[2020-12-09] MEDS ORDERED: FUROSEMIDE 40 MG/4 ML VIAL IV ONE (06:00)
[2020-12-09] MEDS ORDERED: DOCUSATE SODIUM 100 MG CAPSULE PO SCH (09:00)
[2020-12-09] MEDS: FERROUS SULFATE 325 MG TABLET PO SCH (09:26)
[2020-12-09] MEDS: CLORAZEPATE 3.75 MG TABLET PO PRN (09:26)
[2020-12-09] MEDS: PANTOPRAZOLE 40 MG TABLET PO SCH (09:26)
[2020-12-09] MEDS: MAGNESIUM OXIDE 400 MG TABLET PO SCH ×2 (09:26→21:44)
[2020-12-09] MEDS: VITAMIN E 400 UNIT CAPSULE PO SCH ×2 (09:26→21:42)
[2020-12-09] MEDS: ASPIRIN EC 81 MG TABLET PO SCH ×2 (09:27→09:45)
[2020-12-09] MEDS: CHLORHEXIDINE 0.12% ORAL RINSE 60 ML BOTTLE SWISH/SPIT SCH ×2 (09:27→21:51)
[2020-12-09] MEDS: metFORMIN 500 MG TABLET PO SCH ×2 (09:27→21:43)
[2020-12-09] MEDS: CHOLECALCIFEROL 400 UNIT TABLET PO SCH (09:27)
[2020-12-09] MEDS: INSULIN LISPRO 100 UNIT/ML SUBCUT SCH ×7 (09:35→21:51)
[2020-12-09] MEDS: INSULIN GLARGINE 100 UNIT/ML SUBCUT SCH (09:44)
[2020-12-09] MEDS: FUROSEMIDE 40 MG/4 ML VIAL IV SCH (09:46)
[2020-12-09] MEDS ORDERED: KETOROLAC 30 MG/1 ML VIAL IV ONE (10:30)
[2020-12-09] MEDS: ACETAMINOPHEN 325 MG TABLET PO SCH ×3 (10:50→21:43)
[2020-12-09] MEDS: POLYETHYLENE GLYCOL POWDER 17 GM PACK PO SCH (10:50)
[2020-12-09] MEDS: TAMSULOSIN 0.4 MG CAPSULE PO SCH (21:44)
[2020-12-09] MEDS: NEBIVOLOL 5 MG TABLET PO SCH (21:52)
[2020-12-10] MEDS: oxyCODONE/ACETAMINOPHEN 5-325 MG TABLET PO PRN ×4 (02:09→21:21)
[2020-12-10] MEDS: ACETAMINOPHEN 325 MG TABLET PO SCH ×3 (04:35→17:19)
[2020-12-10 05:10] LABS: Albumin 2.4 G/DL (3.4-5.0); Bilirubin,Direct 0.16 MG/DL (0.0-0.20); Bilirubin,Indirect 0.2 MG/DL (0.0-1.0); Bilirubin,Total 0.4 MG/DL (0.20-1.00); CKMB % 3.4 %; Potassium 3.8 MMOL/L (3.5-5.1); Total Protein 5.5 G/DL (6.4-8.2)
[2020-12-10 05:11] LABS: High Sensitive Troponin I* 17864.6 ng/L (0-78)
[2020-12-10] MEDS: FERROUS SULFATE 325 MG TABLET PO SCH (09:37)
[2020-12-10] MEDS: VITAMIN E 400 UNIT CAPSULE PO SCH ×2 (09:37→21:17)
[2020-12-10] MEDS: DOCUSATE SODIUM 100 MG CAPSULE PO SCH ×2 (09:37→21:17)
[2020-12-10] MEDS: CHOLECALCIFEROL 400 UNIT TABLET PO SCH (09:38)
[2020-12-10] MEDS: PANTOPRAZOLE 40 MG TABLET PO SCH (09:38)
[2020-12-10] MEDS: MAGNESIUM OXIDE 400 MG TABLET PO SCH ×2 (09:40→21:17)
[2020-12-10] MEDS: metFORMIN 500 MG TABLET PO SCH ×2 (09:41→21:17)
[2020-12-10] MEDS: ASPIRIN EC 81 MG TABLET PO SCH ×2 (09:41→12:49)
[2020-12-10] MEDS: POLYETHYLENE GLYCOL POWDER 17 GM PACK PO SCH (09:42)
[2020-12-10] MEDS: INSULIN LISPRO 100 UNIT/ML SUBCUT SCH ×7 (09:42→21:19)
[2020-12-10] MEDS: INSULIN GLARGINE 100 UNIT/ML SUBCUT SCH (09:42)
[2020-12-10] MEDS: CHLORHEXIDINE 0.12% ORAL RINSE 60 ML BOTTLE SWISH/SPIT SCH ×2 (09:44→21:18)
[2020-12-10] MEDS: FUROSEMIDE 40 MG/4 ML VIAL IV SCH (09:44)
[2020-12-10] MEDS: NEBIVOLOL 5 MG TABLET PO SCH (21:17)
[2020-12-10] MEDS: TAMSULOSIN 0.4 MG CAPSULE PO SCH (21:18)
[2020-12-11] MEDS: ACETAMINOPHEN 325 MG TABLET PO PRN (00:42)
[2020-12-11] MEDS: oxyCODONE/ACETAMINOPHEN 5-325 MG TABLET PO PRN ×3 (02:40→21:33)
[2020-12-11] MEDS: POLYETHYLENE GLYCOL POWDER 17 GM PACK PO SCH (09:52)
[2020-12-11] MEDS: MAGNESIUM HYDROXIDE SUSP 30 ML UDCUP PO PRN (09:52)
[2020-12-11] MEDS: CLORAZEPATE 3.75 MG TABLET PO PRN ×2 (09:52→21:31)
[2020-12-11] MEDS: PANTOPRAZOLE 40 MG TABLET PO SCH (09:53)
[2020-12-11] MEDS: CHOLECALCIFEROL 400 UNIT TABLET PO SCH (09:53)
[2020-12-11] MEDS: metFORMIN 500 MG TABLET PO SCH ×2 (09:53→21:31)
[2020-12-11] MEDS: DOCUSATE SODIUM 100 MG CAPSULE PO SCH ×2 (09:53→21:31)
[2020-12-11] MEDS: FERROUS SULFATE 325 MG TABLET PO SCH (09:53)
[2020-12-11] MEDS: ASPIRIN EC 81 MG TABLET PO SCH (09:53)
[2020-12-11] MEDS: INSULIN GLARGINE 100 UNIT/ML SUBCUT SCH (09:54)
[2020-12-11] MEDS: MAGNESIUM OXIDE 400 MG TABLET PO SCH ×2 (09:54→21:32)
[2020-12-11] MEDS: INSULIN LISPRO 100 UNIT/ML SUBCUT SCH ×7 (09:55→21:33)
[2020-12-11] MEDS: FUROSEMIDE 40 MG/4 ML VIAL IV SCH (09:59)
[2020-12-11] MEDS: CHLORHEXIDINE 0.12% ORAL RINSE 60 ML BOTTLE SWISH/SPIT SCH ×2 (10:00→21:33)
[2020-12-11 10:56] LABS: Calcium 7.9 MG/DL (8.5-10.1); Osmolality,Calculated 291.9 MOS/KG (273-304); Potassium 4.9 MMOL/L (3.5-5.1)
[2020-12-11] MEDS ORDERED: SODIUM PHOSPHATE ENEMA 133 ML BOTTLE RECTAL PRN (13:17)
[2020-12-11] MEDS: VITAMIN E 400 UNIT CAPSULE PO SCH ×2 (14:37→21:31)
[2020-12-11] MEDS: ONDANSETRON 4 MG/2 ML VIAL IV PRN (14:48)
[2020-12-11] MEDS: TAMSULOSIN 0.4 MG CAPSULE PO SCH ×2 (17:43→21:32)
[2020-12-11] MEDS: NEBIVOLOL 5 MG TABLET PO SCH (21:32)
[2020-12-12 04:34] LABS: Basophils % 0.3 % (0.0-0.8); Eosinophils # 0.1 10*3/uL (0.0-0.87); Eosinophils % 0.6 % (0.00-10.9); Hematocrit 26.1 VOL% (42.0-52.0); Immature Granulocytes % 3.1 %; Immature Granulocytes Absolute 0.36 #; Lymphocytes # 1.6 10*3/uL (1.4-4.0); Lymphocytes % 13.7 % (21.2-54.2); Mean Corpuscular HGB Conc 30.7 GM/DL (32-36); Mean Corpuscular Volume 96.7 FL (87-102); Monocytes % 10.3 % (1.7-12.7); NRBC # 0.09 10*3/uL; Platelet Count 297 T/CUMM (130-400); Red Cell Distribution Width 13.7 % (9.3-17.3); White Blood Count 11.7 T/CUMM (4-12)
[2020-12-12 04:51] LABS: Alanine Aminotransferase 145 U/L (16-61); Albumin 2.5 G/DL (3.4-5.0); Alkaline Phosphatase 76 U/L (45-117); Aspartate Amino Transferase 34 U/L (0-37); Bilirubin,Indirect 0.2 MG/DL (0.0-1.0); Blood Urea Nitrogen 68 MG/DL (7-18); Calcium 8.3 MG/DL (8.5-10.1); Carbon Dioxide 25 MMOL/L (21-32); Estimated Glom Filtration Rate 72 ML/MIN; Glucose 95 MG/DL (74-106); Osmolality,Calculated 281.7 MOS/KG (273-304); Potassium 4.1 MMOL/L (3.5-5.1); Sodium 131 MMOL/L (136-145); Total Protein 6.2 G/DL (6.4-8.2)
[2020-12-12] MEDS: ACETAMINOPHEN 325 MG TABLET PO PRN ×2 (06:06→20:59)
[2020-12-12 06:41] LABS: Hypochromasia 1+; Lymphocytes 10 % (20-55); Nucleated Red Blood Cells 1 (0-5); Segmented Neutrophils 85 % (50-85); Total Cells Counted 100
[2020-12-12 06:42] LABS: Microcytosis 1+; Ovalocytes Slight; Platelet Estimate Normal; Polychromasia Slight
[2020-12-12] MEDS: INSULIN LISPRO 100 UNIT/ML SUBCUT SCH ×7 (09:51→21:00)
[2020-12-12] MEDS: INSULIN GLARGINE 100 UNIT/ML SUBCUT SCH (09:52)
[2020-12-12] MEDS: CHOLECALCIFEROL 400 UNIT TABLET PO SCH (09:53)
[2020-12-12] MEDS: POLYETHYLENE GLYCOL POWDER 17 GM PACK PO SCH (09:53)
[2020-12-12] MEDS: VITAMIN E 400 UNIT CAPSULE PO SCH ×2 (09:53→20:53)
[2020-12-12] MEDS: CLORAZEPATE 3.75 MG TABLET PO PRN ×2 (09:53→20:59)
[2020-12-12] MEDS: metFORMIN 500 MG TABLET PO SCH ×2 (09:54→20:52)
[2020-12-12] MEDS: PANTOPRAZOLE 40 MG TABLET PO SCH (09:54)
[2020-12-12] MEDS: ASPIRIN EC 81 MG TABLET PO SCH (09:54)
[2020-12-12] MEDS: FERROUS SULFATE 325 MG TABLET PO SCH (09:54)
[2020-12-12] MEDS: TAMSULOSIN 0.4 MG CAPSULE PO SCH ×2 (09:54→20:52)
[2020-12-12] MEDS: DOCUSATE SODIUM 100 MG CAPSULE PO SCH ×2 (09:54→20:51)
[2020-12-12] MEDS: CHLORHEXIDINE 0.12% ORAL RINSE 60 ML BOTTLE SWISH/SPIT SCH ×2 (09:59→21:00)
[2020-12-12] MEDS: FUROSEMIDE 40 MG/4 ML VIAL IV SCH (09:59)
[2020-12-12] MEDS: MAGNESIUM OXIDE 400 MG TABLET PO SCH ×2 (10:00→20:51)
[2020-12-12] MEDS: MAGNESIUM HYDROXIDE SUSP 30 ML UDCUP PO PRN (18:00)
[2020-12-12] MEDS: NEBIVOLOL 5 MG TABLET PO SCH (20:51)
[2020-12-13 06:30] LABS: Basophils % 0.2 % (0.0-0.8); Eosinophils # 0.1 10*3/uL (0.0-0.87); Eosinophils % 0.5 % (0.00-10.9); Hematocrit 25.2 VOL% (42.0-52.0); Hemoglobin 7.7 GM/DL (14.0-18.0); Immature Granulocytes % 2.6 %; Immature Granulocytes Absolute 0.31 #; Lymphocytes # 1.7 10*3/uL (1.4-4.0); Lymphocytes % 14.3 % (21.2-54.2); Mean Corpuscular HGB Conc 30.6 GM/DL (32-36); Mean Corpuscular Volume 96.6 FL (87-102); Mean Platelet Volume 10.6 FL (9.6-12.0); Monocytes % 9.6 % (1.7-12.7); NRBC # 0.09 10*3/uL; Neutrophils % 72.8 % (38.7-73.9); Platelet Count 300 T/CUMM (130-400); Red Blood Count 2.61 MC/CUMM (3.8-5.5); Red Cell Distribution Width 13.8 % (9.3-17.3); White Blood Count 12.1 T/CUMM (4-12)
[2020-12-13 07:05] LABS: Alanine Aminotransferase 111 U/L (16-61); Albumin 2.5 G/DL (3.4-5.0); Alkaline Phosphatase 82 U/L (45-117); Aspartate Amino Transferase 26 U/L (0-37); Bilirubin,Indirect 0.3 MG/DL (0.0-1.0); Blood Urea Nitrogen 88 MG/DL (7-18); Carbon Dioxide 25 MMOL/L (21-32); Estimated Glom Filtration Rate 46 ML/MIN; Glucose 142 MG/DL (74-106); Osmolality,Calculated 288.8 MOS/KG (273-304); Potassium 5.2 MMOL/L (3.5-5.1); Sodium 130 MMOL/L (136-145); Total Protein 5.8 G/DL (6.4-8.2)
[2020-12-13 07:43] LABS: Hypochromasia Slight; Lymphocytes 13 % (20-55); Nucleated Red Blood Cells 1 (0-5); Segmented Neutrophils 75 % (50-85); Total Cells Counted 100
[2020-12-13 07:44] LABS: Anisocytosis 1+; Microcytosis 1+; Ovalocytes Slight; Platelet Estimate Normal; Polychromasia Slight
[2020-12-13] MEDS: INSULIN LISPRO 100 UNIT/ML SUBCUT SCH ×7 (08:53→20:41)
[2020-12-13] MEDS: metFORMIN 500 MG TABLET PO SCH ×2 (10:02→20:41)
[2020-12-13] MEDS: FERROUS SULFATE 325 MG TABLET PO SCH (10:03)
[2020-12-13] MEDS: CHOLECALCIFEROL 400 UNIT TABLET PO SCH (10:03)
[2020-12-13] MEDS: PANTOPRAZOLE 40 MG TABLET PO SCH (10:03)
[2020-12-13] MEDS: TAMSULOSIN 0.4 MG CAPSULE PO SCH ×2 (10:03→20:40)
[2020-12-13] MEDS: CLORAZEPATE 3.75 MG TABLET PO PRN (10:03)
[2020-12-13] MEDS: VITAMIN E 400 UNIT CAPSULE PO SCH ×2 (10:03→20:40)
[2020-12-13] MEDS: ASPIRIN EC 81 MG TABLET PO SCH (10:04)
[2020-12-13] MEDS: DOCUSATE SODIUM 100 MG CAPSULE PO SCH ×2 (10:04→20:39)
[2020-12-13] MEDS: ACETAMINOPHEN 325 MG TABLET PO PRN ×2 (10:05→20:40)
[2020-12-13] MEDS: FUROSEMIDE 40 MG/4 ML VIAL IV SCH (10:10)
[2020-12-13] MEDS: POLYETHYLENE GLYCOL POWDER 17 GM PACK PO SCH (10:15)
[2020-12-13] MEDS: MAGNESIUM OXIDE 400 MG TABLET PO SCH ×2 (10:15→20:40)
[2020-12-13] MEDS: CHLORHEXIDINE 0.12% ORAL RINSE 60 ML BOTTLE SWISH/SPIT SCH ×2 (10:15→20:40)
[2020-12-13] MEDS: INSULIN GLARGINE 100 UNIT/ML SUBCUT SCH (10:16)
[2020-12-13] MEDS ORDERED: SODIUM POLYSTYRENE SULFATE 15 GM/60 ML BOTTLE PO STA (12:57)
[2020-12-13] MEDS: ONDANSETRON 4 MG/2 ML VIAL IV PRN (19:25)
[2020-12-13] MEDS: NEBIVOLOL 5 MG TABLET PO SCH (20:40)
[2020-12-14] MEDS: ACETAMINOPHEN 325 MG TABLET PO PRN ×2 (02:50→10:03)
[2020-12-14] MEDS: ONDANSETRON 4 MG/2 ML VIAL IV PRN (02:57)
[2020-12-14 06:05] LABS: Basophils % 0.2 % (0.0-0.8); Eosinophils % 0.3 % (0.00-10.9); Hematocrit 25.7 VOL% (42.0-52.0); Hemoglobin 7.9 GM/DL (14.0-18.0); Immature Granulocytes % 2.7 %; Immature Granulocytes Absolute 0.34 #; Lymphocytes # 1.8 10*3/uL (1.4-4.0); Lymphocytes % 14.2 % (21.2-54.2); Mean Corpuscular HGB Conc 30.7 GM/DL (32-36); Mean Corpuscular Volume 96.6 FL (87-102); Mean Platelet Volume 10.9 FL (9.6-12.0); Monocytes % 9.3 % (1.7-12.7); NRBC # 0.08 10*3/uL; Neutrophils % 73.3 % (38.7-73.9); Platelet Count 341 T/CUMM (130-400); Red Blood Count 2.66 MC/CUMM (3.8-5.5); Red Cell Distribution Width 14.1 % (9.3-17.3); White Blood Count 12.7 T/CUMM (4-12)
[2020-12-14 06:36] LABS: Osmolality,Calculated 288.1 MOS/KG (273-304); Potassium 5.6 MMOL/L (3.5-5.1)
[2020-12-14] MEDS ORDERED: SODIUM POLYSTYRENE SULFATE 15 GM/60 ML BOTTLE PO STA (07:24)
[2020-12-14 07:42] LABS: Hypochromasia 1+; Lymphocytes 26 % (20-55); Microcytosis 1+; Nucleated Red Blood Cells 1 (0-5); Platelet Estimate Adequate; Segmented Neutrophils 69 % (50-85); Total Cells Counted 100
[2020-12-14] MEDS ORDERED: SODIUM CHLORIDE 0.9% 1,000 ML IV PRN (08:21)
[2020-12-14] MEDS: VITAMIN E 400 UNIT CAPSULE PO SCH ×2 (10:01→20:45)
[2020-12-14] MEDS: TAMSULOSIN 0.4 MG CAPSULE PO SCH ×2 (10:01→20:45)
[2020-12-14] MEDS: CHOLECALCIFEROL 400 UNIT TABLET PO SCH (10:01)
[2020-12-14] MEDS: DOCUSATE SODIUM 100 MG CAPSULE PO SCH ×2 (10:01→20:45)
[2020-12-14] MEDS: ASPIRIN EC 81 MG TABLET PO SCH (10:02)
[2020-12-14] MEDS: PANTOPRAZOLE 40 MG TABLET PO SCH (10:03)
[2020-12-14] MEDS: POLYETHYLENE GLYCOL POWDER 17 GM PACK PO SCH (10:04)
[2020-12-14] MEDS: FERROUS SULFATE 325 MG TABLET PO SCH (10:04)
[2020-12-14] MEDS: metFORMIN 500 MG TABLET PO SCH (10:31)
[2020-12-14] MEDS: INSULIN LISPRO 100 UNIT/ML SUBCUT SCH ×5 (10:31→21:26)
[2020-12-14] MEDS: INSULIN GLARGINE 100 UNIT/ML SUBCUT SCH (10:31)
[2020-12-14] MEDS: CHLORHEXIDINE 0.12% ORAL RINSE 60 ML BOTTLE SWISH/SPIT SCH ×2 (10:32→21:26)
[2020-12-14] MEDS ORDERED: FUROSEMIDE 40 MG/4 ML VIAL IV ONE (10:33)
[2020-12-14] MEDS: ROSUVASTATIN 20 MG TABLET PO SCH (20:45)
[2020-12-14 23:03] LABS: Osmolality,Calculated 292.8 MOS/KG (273-304); Potassium 5.3 MMOL/L (3.5-5.1)
[2020-12-15] MEDS: ACETAMINOPHEN 325 MG TABLET PO PRN ×3 (00:31→21:29)
[2020-12-15 06:38] LABS: Basophils % 0.2 % (0.0-0.8); Eosinophils % 0.4 % (0.00-10.9); Hemoglobin 8.5 GM/DL (14.0-18.0); Immature Granulocytes % 3.5 %; Immature Granulocytes Absolute 0.39 #; Lymphocytes # 1.2 10*3/uL (1.4-4.0); Lymphocytes % 10.3 % (21.2-54.2); Mean Corpuscular HGB Conc 30.4 GM/DL (32-36); Mean Corpuscular Volume 95.6 FL (87-102); Mean Platelet Volume 10.3 FL (9.6-12.0); Monocytes % 9.8 % (1.7-12.7); NRBC # 0.05 10*3/uL; Neutrophils % 75.8 % (38.7-73.9); Platelet Count 327 T/CUMM (130-400); Red Blood Count 2.93 MC/CUMM (3.8-5.5); Red Cell Distribution Width 14.6 % (9.3-17.3); White Blood Count 11.2 T/CUMM (4-12)
[2020-12-15 06:53] LABS: Calcium 7.9 MG/DL (8.5-10.1); Osmolality,Calculated 287.1 MOS/KG (273-304); Potassium 4.9 MMOL/L (3.5-5.1)
[2020-12-15] MEDS ORDERED: GLUCAGON 1 MG VIAL IM PRN (08:13)
[2020-12-15] MEDS ORDERED: DEXTROSE 50% 25 GM/50 ML VIAL IV PRN (08:13)
[2020-12-15] MEDS: PANTOPRAZOLE 40 MG TABLET PO SCH (09:34)
[2020-12-15] MEDS: POLYETHYLENE GLYCOL POWDER 17 GM PACK PO SCH (09:34)
[2020-12-15] MEDS: VITAMIN E 400 UNIT CAPSULE PO SCH ×2 (09:34→21:29)
[2020-12-15] MEDS: DOCUSATE SODIUM 100 MG CAPSULE PO SCH ×2 (09:34→21:29)
[2020-12-15] MEDS: FERROUS SULFATE 325 MG TABLET PO SCH (09:35)
[2020-12-15] MEDS: ASPIRIN EC 81 MG TABLET PO SCH (09:35)
[2020-12-15] MEDS: CHLORHEXIDINE 0.12% ORAL RINSE 60 ML BOTTLE SWISH/SPIT SCH ×2 (09:35→21:30)
[2020-12-15] MEDS: CHOLECALCIFEROL 400 UNIT TABLET PO SCH (09:35)
[2020-12-15] MEDS: TAMSULOSIN 0.4 MG CAPSULE PO SCH ×2 (09:35→21:29)
[2020-12-15] MEDS: INSULIN LISPRO 100 UNIT/ML SUBCUT SCH ×4 (10:20→21:29)
[2020-12-15] MEDS ORDERED: glipiZIDE 5 MG TABLET PO SCH (16:30)
[2020-12-15] MEDS: ROSUVASTATIN 20 MG TABLET PO SCH (21:29)
[2020-12-16 06:41] LABS: Basophils % 0.3 % (0.0-0.8); Eosinophils # 0.1 10*3/uL (0.0-0.87); Eosinophils % 0.6 % (0.00-10.9); Hematocrit 28.4 VOL% (42.0-52.0); Hemoglobin 8.9 GM/DL (14.0-18.0); Immature Granulocytes Absolute 0.39 #; Lymphocytes # 1.1 10*3/uL (1.4-4.0); Lymphocytes % 10.7 % (21.2-54.2); Mean Corpuscular HGB Conc 31.3 GM/DL (32-36); Mean Platelet Volume 9.8 FL (9.6-12.0); Monocytes % 11.6 % (1.7-12.7); NRBC # 0.02 10*3/uL; Neutrophils % 72.8 % (38.7-73.9); Platelet Count 322 T/CUMM (130-400); Red Blood Count 2.99 MC/CUMM (3.8-5.5); Red Cell Distribution Width 14.5 % (9.3-17.3); White Blood Count 9.9 T/CUMM (4-12)
[2020-12-16 07:07] LABS: Osmolality,Calculated 288.1 MOS/KG (273-304)
[2020-12-16] MEDS: INSULIN LISPRO 100 UNIT/ML SUBCUT SCH ×4 (08:00→21:06)
[2020-12-16 08:01] LABS: Band Neutrophils 1 % (0-10); Hypochromasia 1+; Lymphocytes 5 % (20-55); Microcytosis 1+; Platelet Estimate Adequate; Segmented Neutrophils 86 % (50-85); Total Cells Counted 100
[2020-12-16] MEDS ORDERED: FUROSEMIDE 40 MG/4 ML VIAL IV ONE (08:47)
[2020-12-16] MEDS: glipiZIDE 5 MG TABLET PO SCH ×2 (08:55→17:13)
[2020-12-16] MEDS: VITAMIN E 400 UNIT CAPSULE PO SCH ×2 (08:55→21:06)
[2020-12-16] MEDS: TAMSULOSIN 0.4 MG CAPSULE PO SCH ×2 (08:55→21:05)
[2020-12-16] MEDS: CHOLECALCIFEROL 400 UNIT TABLET PO SCH (08:55)
[2020-12-16] MEDS: DOCUSATE SODIUM 100 MG CAPSULE PO SCH ×2 (08:55→21:05)
[2020-12-16] MEDS: PANTOPRAZOLE 40 MG TABLET PO SCH (08:55)
[2020-12-16] MEDS: FERROUS SULFATE 325 MG TABLET PO SCH (08:55)
[2020-12-16] MEDS: ASPIRIN EC 81 MG TABLET PO SCH (08:56)
[2020-12-16] MEDS: CHLORHEXIDINE 0.12% ORAL RINSE 60 ML BOTTLE SWISH/SPIT SCH ×2 (08:56→21:07)
[2020-12-16] MEDS: POLYETHYLENE GLYCOL POWDER 17 GM PACK PO SCH (08:56)
[2020-12-16] MEDS: ACETAMINOPHEN 325 MG TABLET PO PRN ×2 (11:08→18:10)
[2020-12-16] MEDS: ROSUVASTATIN 20 MG TABLET PO SCH (21:49)
[2020-12-17] MEDS: ACETAMINOPHEN 325 MG TABLET PO PRN ×2 (04:09→18:00)
[2020-12-17 04:35] LABS: Basophils % 0.1 % (0.0-0.8); Eosinophils % 0.5 % (0.00-10.9); Hematocrit 28.3 VOL% (42.0-52.0); Hemoglobin 8.6 GM/DL (14.0-18.0); Immature Granulocytes % 2.9 %; Immature Granulocytes Absolute 0.25 #; Lymphocytes # 0.7 10*3/uL (1.4-4.0); Lymphocytes % 8.3 % (21.2-54.2); Mean Corpuscular HGB Conc 30.4 GM/DL (32-36); Mean Corpuscular Volume 95.3 FL (87-102); Mean Platelet Volume 9.8 FL (9.6-12.0); Monocytes % 9.9 % (1.7-12.7); Neutrophils % 78.3 % (38.7-73.9); Platelet Count 325 T/CUMM (130-400); Red Blood Count 2.97 MC/CUMM (3.8-5.5); Red Cell Distribution Width 14.6 % (9.3-17.3); White Blood Count 8.6 T/CUMM (4-12)
[2020-12-17 04:54] LABS: Calcium 7.9 MG/DL (8.5-10.1); Osmolality,Calculated 289.7 MOS/KG (273-304); Potassium 5.2 MMOL/L (3.5-5.1)
[2020-12-17 04:56] LABS: Albumin 2.6 G/DL (3.4-5.0); Calcium 7.9 MG/DL (8.5-10.1); Osmolality,Calculated 288.7 MOS/KG (273-304)
[2020-12-17] MEDS: CLORAZEPATE 3.75 MG TABLET PO PRN (06:02)
[2020-12-17] MEDS ORDERED: IBUPROFEN 400 MG TABLET PO ONE (07:52)
[2020-12-17] MEDS ORDERED: IBUPROFEN 200 MG TABLET PO PRN (07:53)
[2020-12-17] MEDS: glipiZIDE 5 MG TABLET PO SCH ×2 (09:05→17:47)
[2020-12-17] MEDS: CHOLECALCIFEROL 400 UNIT TABLET PO SCH (09:05)
[2020-12-17] MEDS: DOCUSATE SODIUM 100 MG CAPSULE PO SCH ×2 (09:05→20:45)
[2020-12-17] MEDS: FERROUS SULFATE 325 MG TABLET PO SCH (09:05)
[2020-12-17] MEDS: VITAMIN E 400 UNIT CAPSULE PO SCH ×2 (09:05→20:44)
[2020-12-17] MEDS: INSULIN LISPRO 100 UNIT/ML SUBCUT SCH ×5 (09:06→20:45)
[2020-12-17] MEDS: ASPIRIN EC 81 MG TABLET PO SCH (09:06)
[2020-12-17] MEDS: TAMSULOSIN 0.4 MG CAPSULE PO SCH ×2 (09:08→20:44)
[2020-12-17] MEDS: POLYETHYLENE GLYCOL POWDER 17 GM PACK PO SCH (09:08)
[2020-12-17] MEDS: PANTOPRAZOLE 40 MG TABLET PO SCH (09:08)
[2020-12-17] MEDS: CHLORHEXIDINE 0.12% ORAL RINSE 60 ML BOTTLE SWISH/SPIT SCH ×2 (09:08→20:45)
[2020-12-17] MEDS ORDERED: SODIUM POLYSTYRENE SULFATE 15 GM/60 ML BOTTLE PO STA (09:29)
[2020-12-17] MEDS: FUROSEMIDE 20 MG TABLET PO SCH (10:36)
[2020-12-17] MEDS: IBUPROFEN 600 MG TABLET PO SCH (20:44)
[2020-12-17] MEDS: ROSUVASTATIN 20 MG TABLET PO SCH (20:45)
[2020-12-18] MEDS: ACETAMINOPHEN 325 MG TABLET PO PRN (03:30)
[2020-12-18 04:30] LABS: Basophils % 0.1 % (0.0-0.8); Eosinophils # 0.1 10*3/uL (0.0-0.87); Eosinophils % 0.8 % (0.00-10.9); Hematocrit 26.6 VOL% (42.0-52.0); Hemoglobin 8.2 GM/DL (14.0-18.0); Immature Granulocytes % 1.4 %; Lymphocytes % 13.8 % (21.2-54.2); Mean Corpuscular HGB Conc 30.8 GM/DL (32-36); Mean Corpuscular Volume 95.3 FL (87-102); Mean Platelet Volume 9.6 FL (9.6-12.0); Monocytes % 10.8 % (1.7-12.7); Neutrophils % 73.1 % (38.7-73.9); Platelet Count 277 T/CUMM (130-400); Red Blood Count 2.79 MC/CUMM (3.8-5.5); Red Cell Distribution Width 14.9 % (9.3-17.3); White Blood Count 7.3 T/CUMM (4-12)
[2020-12-18 04:54] LABS: Calcium 7.7 MG/DL (8.5-10.1); Osmolality,Calculated 282.8 MOS/KG (273-304); Potassium 4.6 MMOL/L (3.5-5.1)
[2020-12-18] MEDS ORDERED: SODIUM CHLORIDE 0.9% 1,000 ML IV PRN (09:16)
[2020-12-18] MEDS: INSULIN LISPRO 100 UNIT/ML SUBCUT SCH ×7 (09:19→20:58)
[2020-12-18] MEDS: CHOLECALCIFEROL 400 UNIT TABLET PO SCH (09:20)
[2020-12-18] MEDS: PANTOPRAZOLE 40 MG TABLET PO SCH (09:20)
[2020-12-18] MEDS: FERROUS SULFATE 325 MG TABLET PO SCH (09:21)
[2020-12-18] MEDS: VITAMIN E 400 UNIT CAPSULE PO SCH ×2 (09:21→20:57)
[2020-12-18] MEDS: FUROSEMIDE 20 MG TABLET PO SCH (09:21)
[2020-12-18] MEDS: TAMSULOSIN 0.4 MG CAPSULE PO SCH ×2 (09:21→20:57)
[2020-12-18] MEDS: DOCUSATE SODIUM 100 MG CAPSULE PO SCH ×2 (09:21→20:57)
[2020-12-18] MEDS: IBUPROFEN 600 MG TABLET PO SCH ×2 (09:22→20:58)
[2020-12-18] MEDS: ASPIRIN EC 81 MG TABLET PO SCH (09:22)
[2020-12-18] MEDS: glipiZIDE 5 MG TABLET PO SCH ×2 (10:58→17:55)
[2020-12-18] MEDS: POLYETHYLENE GLYCOL POWDER 17 GM PACK PO SCH (11:37)
[2020-12-18] MEDS: CHLORHEXIDINE 0.12% ORAL RINSE 60 ML BOTTLE SWISH/SPIT SCH ×2 (11:37→21:41)
[2020-12-18] MEDS ORDERED: FUROSEMIDE 40 MG/4 ML VIAL IV ONE ×2 (12:00→20:30)
[2020-12-18] MEDS ORDERED: CLORAZEPATE 3.75 MG TABLET PO PRN (14:02)
[2020-12-18] MEDS: ROSUVASTATIN 20 MG TABLET PO SCH (20:57)
[2020-12-18] MEDS: INSULIN GLARGINE 100 UNIT/ML SUBCUT SCH (20:58)
[2020-12-19] MEDS: ACETAMINOPHEN 325 MG TABLET PO PRN (00:31)
[2020-12-19 06:02] LABS: Basophils % 0.1 % (0.0-0.8); Eosinophils % 0.2 % (0.00-10.9); Hematocrit 30.9 VOL% (42.0-52.0); Hemoglobin 9.6 GM/DL (14.0-18.0); Lymphocytes # 0.9 10*3/uL (1.4-4.0); Lymphocytes % 9.2 % (21.2-54.2); Mean Corpuscular HGB Conc 31.1 GM/DL (32-36); Mean Corpuscular Volume 94.2 FL (87-102); Mean Platelet Volume 10.2 FL (9.6-12.0); Monocytes % 8.7 % (1.7-12.7); Neutrophils % 80.8 % (38.7-73.9); Platelet Count 282 T/CUMM (130-400); Red Blood Count 3.28 MC/CUMM (3.8-5.5); Red Cell Distribution Width 14.6 % (9.3-17.3); White Blood Count 10.1 T/CUMM (4-12)
[2020-12-19 06:32] LABS: Calcium 7.9 MG/DL (8.5-10.1); Osmolality,Calculated 291.7 MOS/KG (273-304); Potassium 4.9 MMOL/L (3.5-5.1)
[2020-12-19 08:13] VITALS: BP 119/64
[2020-12-19] MEDS: DOCUSATE SODIUM 100 MG CAPSULE PO SCH (09:32)
[2020-12-19] MEDS: CHOLECALCIFEROL 400 UNIT TABLET PO SCH (09:32)
[2020-12-19] MEDS: TAMSULOSIN 0.4 MG CAPSULE PO SCH (09:32)
[2020-12-19] MEDS: PANTOPRAZOLE 40 MG TABLET PO SCH (09:32)
[2020-12-19] MEDS: VITAMIN E 400 UNIT CAPSULE PO SCH (09:32)
[2020-12-19] MEDS: FUROSEMIDE 20 MG TABLET PO SCH (09:33)
[2020-12-19] MEDS: glipiZIDE 5 MG TABLET PO SCH (09:33)
[2020-12-19] MEDS: ASPIRIN EC 81 MG TABLET PO SCH (09:33)
[2020-12-19] MEDS: POLYETHYLENE GLYCOL POWDER 17 GM PACK PO SCH (09:33)
[2020-12-19] MEDS: FERROUS SULFATE 325 MG TABLET PO SCH (09:33)
[2020-12-19] MEDS: INSULIN GLARGINE 100 UNIT/ML SUBCUT SCH (09:34)
[2020-12-19] MEDS: INSULIN LISPRO 100 UNIT/ML SUBCUT SCH (09:38)
[2020-12-19] MEDS: CHLORHEXIDINE 0.12% ORAL RINSE 60 ML BOTTLE SWISH/SPIT SCH (09:38)
[2020-12-19] MEDS: IBUPROFEN 600 MG TABLET PO SCH (11:02)
== END 2020-12-19 12:35 | disposition home health service (06) | DRG 236 ==
LOC: N.2W 12:20 → N.CVR 12-03 11:07 → N.ICU 12-04 12:15 → N.TELES 12-08 18:06

== ENCOUNTER 2021-01-05 11:54 | Inpatient (IN) ==
[2021-01-05] MEDS ORDERED: ONDANSETRON 4 MG/2 ML VIAL IV STA (13:13)
[2021-01-05 13:19] LABS: Basophils % 0.3 % (0.0-0.8); Eosinophils % 0.3 % (0.00-10.9); Hematocrit 38.2 VOL% (42.0-52.0); Hemoglobin 11.5 GM/DL (14.0-18.0); Immature Granulocytes % 0.4 %; Immature Granulocytes Absolute 0.03 #; Lymphocytes % 15.4 % (21.2-54.2); Mean Corpuscular HGB Conc 30.1 GM/DL (32-36); Mean Corpuscular Volume 91.4 FL (87-102); Mean Platelet Volume 11.3 FL (9.6-12.0); Monocytes % 10.3 % (1.7-12.7); Neutrophils % 73.3 % (38.7-73.9); Platelet Count 246 T/CUMM (130-400); Red Blood Count 4.18 MC/CUMM (3.8-5.5); Red Cell Distribution Width 14.9 % (9.3-17.3); White Blood Count 6.7 T/CUMM (4-12)
[2021-01-05 13:25] LABS: Amorphous Crystals,Urine Few /HPF (Few); Bilirubin,Urine Negative (Negative); Blood, Urine Negative (Negative); Glucose,Urine (UA) >=500 mg/dL (Negative); Hyaline Casts,Urine 102 /LPF (0-3); Ketones,Urine Negative (Negative); Mucus,Urine Few /LPF (Occasional); Nitrite,Urine Negative (Negative); Protein,Urine 100 MG/DL; RBC,Urine 2 /HPF (0-4); Urine Appearance CLOUDY (Clear); Urine Color Amber (Yellow); Urine Specific Gravity 1.021 (1.001-1.035)
[2021-01-05 13:31] LABS: Albumin 3.2 G/DL (3.4-5.0); Bilirubin,Total 0.6 MG/DL (0.20-1.00); Calcium 9.4 MG/DL (8.5-10.1); Osmolality,Calculated 281.5 MOS/KG (273-304); Potassium 4.4 MMOL/L (3.5-5.1); Total Protein 6.7 G/DL (6.4-8.2)
[2021-01-05] MEDS ORDERED: SODIUM CHLORIDE 0.9% 500 ML IV STA ×2 (15:13→15:21)
[2021-01-05] MEDS ORDERED: SIMETHICONE CHEW 125 MG TABLET PO PRN (16:32)
[2021-01-05] MEDS ORDERED: MAGNESIUM SULF RIDER 2 GM/50 ML PREMIX IV PRN (16:32)
[2021-01-05] MEDS ORDERED: DEXTROSE 50% 25 GM/50 ML VIAL IV PRN (16:32)
[2021-01-05] MEDS ORDERED: ALBUTEROL/IPRATROPIUM 3 ML NEB RESP TX PRN (16:32)
[2021-01-05] MEDS ORDERED: MAGNESIUM SULF RIDER 4 GM/100 ML PREMIX IV PRN (16:32)
[2021-01-05] MEDS ORDERED: GLUCAGON 1 MG VIAL IM PRN ×2 (16:32)
[2021-01-05] MEDS ORDERED: DOCUSATE SODIUM 100 MG CAPSULE PO PRN (16:32)
[2021-01-05] MEDS ORDERED: CALCIUM CARBONATE CHEW 500 MG TABLET PO PRN (16:32)
[2021-01-05] MEDS ORDERED: NITROGLYCERIN SL 0.4 MG TABLET SL PRN (16:34)
[2021-01-05] MEDS ORDERED: DEXTROSE 50% 25 GM/50 ML SYRINGE IV PRN (16:50)
[2021-01-05] MEDS ORDERED: VITAMIN E 1000 UNIT CAPSULE PO SCH (18:00)
[2021-01-05] MEDS: CHOLECALCIFEROL 400 UNIT TABLET PO SCH (19:53)
[2021-01-05] MEDS: ENOXAPARIN 30 MG/0.3 ML SYRINGE SUBCUT SCH (19:53)
[2021-01-05] MEDS: PANTOPRAZOLE 40 MG TABLET PO SCH (19:53)
[2021-01-05] MEDS: ALBUMIN 5% 25 GM/500 ML VIAL IV SCH (19:53)
[2021-01-05] MEDS: ASPIRIN EC 81 MG TABLET PO SCH (19:53)
[2021-01-05] MEDS: TAMSULOSIN 0.4 MG CAPSULE PO SCH (20:39)
[2021-01-05] MEDS: ROSUVASTATIN 20 MG TABLET PO SCH (20:39)
[2021-01-05] MEDS: INSULIN LISPRO 100 UNIT/ML SUBCUT SCH (21:15)
[2021-01-05] MEDS: INSULIN GLARGINE 100 UNIT/ML SUBCUT SCH (21:16)
[2021-01-05] MEDS: FUROSEMIDE 40 MG/4 ML VIAL IV SCH (22:16)
[2021-01-06 07:23] LABS: Basophils % 0.3 % (0.0-0.8); Eosinophils % 0.4 % (0.00-10.9); Hematocrit 36.5 VOL% (42.0-52.0); Hemoglobin 11.2 GM/DL (14.0-18.0); Immature Granulocytes % 0.7 %; Immature Granulocytes Absolute 0.05 #; Lymphocytes # 1.2 10*3/uL (1.4-4.0); Lymphocytes % 16.4 % (21.2-54.2); Mean Corpuscular HGB Conc 30.7 GM/DL (32-36); Mean Corpuscular Volume 92.4 FL (87-102); Mean Platelet Volume 11.3 FL (9.6-12.0); Monocytes % 10.5 % (1.7-12.7); Neutrophils % 71.7 % (38.7-73.9); Platelet Count 217 T/CUMM (130-400); Red Blood Count 3.95 MC/CUMM (3.8-5.5); Red Cell Distribution Width 14.7 % (9.3-17.3); White Blood Count 7.6 T/CUMM (4-12)
[2021-01-06 07:40] LABS: Albumin 3.4 G/DL (3.4-5.0); Bilirubin,Total 1.2 MG/DL (0.20-1.00); Osmolality,Calculated 284.4 MOS/KG (273-304); Risk Ratio 2.24; Total Protein 6.5 G/DL (6.4-8.2); VLDL Cholesterol 18.2 MG/DL
[2021-01-06] MEDS: PIPERACILLIN/TAZOBACTAM 3,375 MG in SODIUM CHLORIDE 0.9% 100 ML IV SCH ×2 (08:24→14:34)
[2021-01-06] MEDS: INSULIN LISPRO 100 UNIT/ML SUBCUT SCH ×4 (08:24→21:08)
[2021-01-06] MEDS: FUROSEMIDE 40 MG/4 ML VIAL IV SCH ×2 (08:24→11:37)
[2021-01-06] MEDS: TAMSULOSIN 0.4 MG CAPSULE PO SCH ×2 (08:25→21:06)
[2021-01-06] MEDS: ASPIRIN EC 81 MG TABLET PO SCH (08:25)
[2021-01-06] MEDS: CHOLECALCIFEROL 400 UNIT TABLET PO SCH (08:25)
[2021-01-06] MEDS: VITAMIN E 400 UNIT CAPSULE PO SCH (08:25)
[2021-01-06] MEDS: PANTOPRAZOLE 40 MG TABLET PO SCH (08:33)
[2021-01-06] MEDS: ALBUMIN 5% 25 GM/500 ML VIAL IV SCH ×2 (11:36→21:07)
[2021-01-06] MEDS: ENOXAPARIN 30 MG/0.3 ML SYRINGE SUBCUT SCH (16:55)
[2021-01-06] MEDS: ROSUVASTATIN 20 MG TABLET PO SCH (21:06)
[2021-01-06] MEDS: INSULIN GLARGINE 100 UNIT/ML SUBCUT SCH (21:07)
[2021-01-07] MEDS: PIPERACILLIN/TAZOBACTAM 3,375 MG in SODIUM CHLORIDE 0.9% 100 ML IV SCH ×3 (00:35→15:39)
[2021-01-07] MEDS: FUROSEMIDE 40 MG/4 ML VIAL IV SCH ×2 (00:36→12:15)
[2021-01-07] MEDS: ACETAMINOPHEN 325 MG TABLET PO PRN ×2 (00:36→17:45)
[2021-01-07 05:13] LABS: Basophils % 0.3 % (0.0-0.8); Eosinophils # 0.1 10*3/uL (0.0-0.87); Eosinophils % 0.9 % (0.00-10.9); Hemoglobin 10.2 GM/DL (14.0-18.0); Immature Granulocytes % 0.3 %; Immature Granulocytes Absolute 0.02 #; Lymphocytes # 1.2 10*3/uL (1.4-4.0); Lymphocytes % 18.4 % (21.2-54.2); Mean Corpuscular HGB Conc 30.9 GM/DL (32-36); Mean Corpuscular Volume 91.2 FL (87-102); Mean Platelet Volume 11.1 FL (9.6-12.0); Monocytes % 10.6 % (1.7-12.7); Neutrophils % 69.5 % (38.7-73.9); Platelet Count 170 T/CUMM (130-400); Red Blood Count 3.62 MC/CUMM (3.8-5.5); Red Cell Distribution Width 14.7 % (9.3-17.3); White Blood Count 6.7 T/CUMM (4-12)
[2021-01-07 05:38] LABS: Calcium 9.3 MG/DL (8.5-10.1); Potassium 3.2 MMOL/L (3.5-5.1)
[2021-01-07] MEDS: ALBUMIN 5% 25 GM/500 ML VIAL IV SCH ×2 (08:48→21:53)
[2021-01-07] MEDS: INSULIN LISPRO 100 UNIT/ML SUBCUT SCH ×4 (08:48→21:55)
[2021-01-07] MEDS: ASPIRIN EC 81 MG TABLET PO SCH (08:49)
[2021-01-07] MEDS: CHOLECALCIFEROL 400 UNIT TABLET PO SCH (08:49)
[2021-01-07] MEDS: VITAMIN E 400 UNIT CAPSULE PO SCH (08:49)
[2021-01-07] MEDS: PANTOPRAZOLE 40 MG TABLET PO SCH (08:49)
[2021-01-07] MEDS: TAMSULOSIN 0.4 MG CAPSULE PO SCH ×2 (08:49→21:54)
[2021-01-07] MEDS ORDERED: POTASSIUM CHLORIDE 20 MEQ TABLET PO ONE (08:56)
[2021-01-07] MEDS: ONDANSETRON 4 MG/2 ML VIAL IV PRN (11:10)
[2021-01-07] MEDS: ENOXAPARIN 30 MG/0.3 ML SYRINGE SUBCUT SCH (17:43)
[2021-01-07] MEDS: ROSUVASTATIN 20 MG TABLET PO SCH (21:54)
[2021-01-07] MEDS: INSULIN GLARGINE 100 UNIT/ML SUBCUT SCH (21:54)
[2021-01-08] MEDS: FUROSEMIDE 40 MG/4 ML VIAL IV SCH ×3 (00:17→12:55)
[2021-01-08] MEDS: PIPERACILLIN/TAZOBACTAM 3,375 MG in SODIUM CHLORIDE 0.9% 100 ML IV SCH ×3 (00:17→16:30)
[2021-01-08 06:11] LABS: Basophils % 0.3 % (0.0-0.8); Eosinophils # 0.1 10*3/uL (0.0-0.87); Eosinophils % 1.4 % (0.00-10.9); Hematocrit 34.6 VOL% (42.0-52.0); Hemoglobin 10.5 GM/DL (14.0-18.0); Immature Granulocytes % 0.5 %; Immature Granulocytes Absolute 0.03 #; Lymphocytes # 1.1 10*3/uL (1.4-4.0); Lymphocytes % 17.2 % (21.2-54.2); Mean Corpuscular HGB Conc 30.3 GM/DL (32-36); Mean Corpuscular Volume 91.8 FL (87-102); Mean Platelet Volume 11.1 FL (9.6-12.0); Monocytes % 10.1 % (1.7-12.7); Neutrophils % 70.5 % (38.7-73.9); Platelet Count 161 T/CUMM (130-400); Red Blood Count 3.77 MC/CUMM (3.8-5.5); Red Cell Distribution Width 14.5 % (9.3-17.3); White Blood Count 6.6 T/CUMM (4-12)
[2021-01-08 06:27] LABS: Calcium 9.4 MG/DL (8.5-10.1); Osmolality,Calculated 281.8 MOS/KG (273-304); Potassium 2.6 MMOL/L (3.5-5.1)
[2021-01-08] MEDS ORDERED: POTASSIUM CHLORIDE 20 MEQ TABLET PO ONE ×2 (07:39→15:51)
[2021-01-08] MEDS: ALBUMIN 5% 25 GM/500 ML VIAL IV SCH ×2 (10:07→20:37)
[2021-01-08] MEDS: INSULIN LISPRO 100 UNIT/ML SUBCUT SCH ×4 (10:09→20:38)
[2021-01-08] MEDS: CHOLECALCIFEROL 400 UNIT TABLET PO SCH (10:10)
[2021-01-08] MEDS: TAMSULOSIN 0.4 MG CAPSULE PO SCH ×2 (10:11→20:37)
[2021-01-08] MEDS: PANTOPRAZOLE 40 MG TABLET PO SCH (10:11)
[2021-01-08] MEDS: VITAMIN E 400 UNIT CAPSULE PO SCH (10:11)
[2021-01-08] MEDS: ASPIRIN EC 81 MG TABLET PO SCH (10:12)
[2021-01-08] MEDS ORDERED: MAGNESIUM SULF RIDER 2 GM/50 ML PREMIX IV ONE (15:49)
[2021-01-08] MEDS: ENOXAPARIN 30 MG/0.3 ML SYRINGE SUBCUT SCH (17:03)
[2021-01-08] MEDS: INSULIN GLARGINE 100 UNIT/ML SUBCUT SCH (20:37)
[2021-01-08] MEDS: ROSUVASTATIN 20 MG TABLET PO SCH (20:37)
[2021-01-08] MEDS: ACETAMINOPHEN 325 MG TABLET PO PRN (20:37)
[2021-01-09] MEDS: FUROSEMIDE 40 MG/4 ML VIAL IV SCH ×2 (00:01→11:32)
[2021-01-09] MEDS: PIPERACILLIN/TAZOBACTAM 3,375 MG in SODIUM CHLORIDE 0.9% 100 ML IV SCH ×3 (00:01→18:20)
[2021-01-09 05:05] LABS: Basophils % 0.4 % (0.0-0.8); Eosinophils # 0.1 10*3/uL (0.0-0.87); Eosinophils % 1.4 % (0.00-10.9); Hematocrit 33.4 VOL% (42.0-52.0); Hemoglobin 10.4 GM/DL (14.0-18.0); Immature Granulocytes % 0.5 %; Immature Granulocytes Absolute 0.03 #; Lymphocytes # 1.1 10*3/uL (1.4-4.0); Lymphocytes % 19.4 % (21.2-54.2); Mean Corpuscular HGB Conc 31.1 GM/DL (32-36); Mean Corpuscular Volume 90.8 FL (87-102); Mean Platelet Volume 11.5 FL (9.6-12.0); Monocytes % 10.6 % (1.7-12.7); Neutrophils % 67.7 % (38.7-73.9); Platelet Count 148 T/CUMM (130-400); Red Blood Count 3.68 MC/CUMM (3.8-5.5); Red Cell Distribution Width 14.2 % (9.3-17.3); White Blood Count 5.7 T/CUMM (4-12)
[2021-01-09 05:28] LABS: Potassium 2.5 MMOL/L (3.5-5.1)
[2021-01-09] MEDS ORDERED: POTASSIUM CHLORIDE 20 MEQ TABLET PO PRN (05:32)
[2021-01-09] MEDS: ALBUMIN 5% 25 GM/500 ML VIAL IV SCH ×2 (09:00→21:01)
[2021-01-09] MEDS: PANTOPRAZOLE 40 MG TABLET PO SCH (09:25)
[2021-01-09] MEDS: VITAMIN E 400 UNIT CAPSULE PO SCH (09:25)
[2021-01-09] MEDS: ASPIRIN EC 81 MG TABLET PO SCH (09:25)
[2021-01-09] MEDS: TAMSULOSIN 0.4 MG CAPSULE PO SCH ×2 (09:25→21:00)
[2021-01-09] MEDS: INSULIN LISPRO 100 UNIT/ML SUBCUT SCH ×4 (09:25→21:00)
[2021-01-09] MEDS: POTASSIUM CHLORIDE 20 MEQ TABLET PO SCH (09:26)
[2021-01-09] MEDS: CHOLECALCIFEROL 400 UNIT TABLET PO SCH (09:26)
[2021-01-09] MEDS: LORazepam 1 MG TABLET PO PRN (11:32)
[2021-01-09] MEDS: ENOXAPARIN 40 MG/0.4 ML SYRINGE SUBCUT SCH (18:20)
[2021-01-09] MEDS: ROSUVASTATIN 20 MG TABLET PO SCH (21:00)
[2021-01-09] MEDS ORDERED: CLORAZEPATE 7.5 MG TABLET PO SCH (21:00)
[2021-01-09] MEDS: INSULIN GLARGINE 100 UNIT/ML SUBCUT SCH (21:01)
[2021-01-10] MEDS: FUROSEMIDE 40 MG/4 ML VIAL IV SCH ×2 (00:57→14:18)
[2021-01-10] MEDS: PIPERACILLIN/TAZOBACTAM 3,375 MG in SODIUM CHLORIDE 0.9% 100 ML IV SCH ×2 (00:57→10:46)
[2021-01-10 07:44] LABS: Basophils % 0.3 % (0.0-0.8); Eosinophils # 0.2 10*3/uL (0.0-0.87); Eosinophils % 2.2 % (0.00-10.9); Hematocrit 38.6 VOL% (42.0-52.0); Hemoglobin 12.1 GM/DL (14.0-18.0); Immature Granulocytes % 0.4 %; Immature Granulocytes Absolute 0.03 #; Lymphocytes # 1.5 10*3/uL (1.4-4.0); Mean Corpuscular HGB Conc 31.3 GM/DL (32-36); Mean Platelet Volume 11.1 FL (9.6-12.0); Monocytes % 8.9 % (1.7-12.7); Neutrophils % 66.2 % (38.7-73.9); Platelet Count 177 T/CUMM (130-400); Red Blood Count 4.29 MC/CUMM (3.8-5.5); Red Cell Distribution Width 14.6 % (9.3-17.3); White Blood Count 6.9 T/CUMM (4-12)
[2021-01-10 08:12] LABS: Calcium 9.8 MG/DL (8.5-10.1); Osmolality,Calculated 277.8 MOS/KG (273-304); Potassium 2.8 MMOL/L (3.5-5.1)
[2021-01-10] MEDS ORDERED: MAGNESIUM SULF RIDER 2 GM/50 ML PREMIX IV ONE (09:01)
[2021-01-10] MEDS: POTASSIUM CHLORIDE 20 MEQ TABLET PO SCH (10:40)
[2021-01-10] MEDS: INSULIN LISPRO 100 UNIT/ML SUBCUT SCH ×4 (10:41→20:53)
[2021-01-10] MEDS: ALBUMIN 5% 25 GM/500 ML VIAL IV SCH ×2 (10:41→20:51)
[2021-01-10] MEDS: CHOLECALCIFEROL 400 UNIT TABLET PO SCH (10:44)
[2021-01-10] MEDS: PANTOPRAZOLE 40 MG TABLET PO SCH (10:44)
[2021-01-10] MEDS: VITAMIN E 400 UNIT CAPSULE PO SCH (10:44)
[2021-01-10] MEDS: TAMSULOSIN 0.4 MG CAPSULE PO SCH ×2 (10:45→20:52)
[2021-01-10] MEDS: ASPIRIN EC 81 MG TABLET PO SCH (10:45)
[2021-01-10] MEDS ORDERED: VANCOMYCIN INJ 1,500 MG in SODIUM CHLORIDE 0.9% 500 ML IV SCH (12:00)
[2021-01-10] MEDS ORDERED: POTASSIUM CHLORIDE 20 MEQ TABLET PO ONE (15:19)
[2021-01-10] MEDS: FUROSEMIDE 80 MG TABLET PO SCH (17:17)
[2021-01-10] MEDS: ENOXAPARIN 40 MG/0.4 ML SYRINGE SUBCUT SCH (17:18)
[2021-01-10] MEDS: INSULIN GLARGINE 100 UNIT/ML SUBCUT SCH (20:51)
[2021-01-10] MEDS: ROSUVASTATIN 20 MG TABLET PO SCH (20:52)
[2021-01-10] MEDS: LORazepam 1 MG TABLET PO PRN (20:52)
[2021-01-10] MEDS: LINEZOLID 600 MG TABLET PO SCH (20:53)
[2021-01-10] MEDS ORDERED: POTASSIUM CHLORIDE 20 MEQ TABLET PO SCH (21:00)
[2021-01-11 05:51] LABS: Calcium 9.4 MG/DL (8.5-10.1); Osmolality,Calculated 281.5 MOS/KG (273-304); Potassium 2.7 MMOL/L (3.5-5.1)
[2021-01-11] MEDS ORDERED: POTASSIUM CHLORIDE 20 MEQ TABLET PO ONE (08:07)
[2021-01-11] MEDS: ALBUMIN 5% 25 GM/500 ML VIAL IV SCH ×2 (09:24→21:32)
[2021-01-11] MEDS: INSULIN LISPRO 100 UNIT/ML SUBCUT SCH ×4 (09:25→21:20)
[2021-01-11] MEDS: FUROSEMIDE 80 MG TABLET PO SCH ×2 (09:28→16:42)
[2021-01-11] MEDS: POTASSIUM CHLORIDE 20 MEQ TABLET PO SCH ×2 (09:28→21:19)
[2021-01-11] MEDS: VITAMIN E 400 UNIT CAPSULE PO SCH (09:28)
[2021-01-11] MEDS: CHOLECALCIFEROL 400 UNIT TABLET PO SCH (09:28)
[2021-01-11] MEDS: ASPIRIN EC 81 MG TABLET PO SCH (09:28)
[2021-01-11] MEDS: LINEZOLID 600 MG TABLET PO SCH ×2 (09:29→21:20)
[2021-01-11] MEDS: PANTOPRAZOLE 40 MG TABLET PO SCH (09:29)
[2021-01-11] MEDS: TAMSULOSIN 0.4 MG CAPSULE PO SCH ×2 (09:29→21:19)
[2021-01-11] MEDS: ENOXAPARIN 40 MG/0.4 ML SYRINGE SUBCUT SCH (16:42)
[2021-01-11] MEDS ORDERED: ESCITALOPRAM 10 MG TABLET PO SCH (21:00)
[2021-01-11] MEDS: ROSUVASTATIN 20 MG TABLET PO SCH (21:20)
[2021-01-11] MEDS: INSULIN GLARGINE 100 UNIT/ML SUBCUT SCH (21:20)
[2021-01-11] MEDS: ACETAMINOPHEN 325 MG TABLET PO PRN (23:10)
[2021-01-12] MEDS: ONDANSETRON 4 MG/2 ML VIAL IV PRN (05:03)
[2021-01-12 09:15] LABS: Basophils % 0.3 % (0.0-0.8); Eosinophils # 0.1 10*3/uL (0.0-0.87); Eosinophils % 1.6 % (0.00-10.9); Hematocrit 38.3 VOL% (42.0-52.0); Hemoglobin 11.5 GM/DL (14.0-18.0); Immature Granulocytes % 0.7 %; Immature Granulocytes Absolute 0.05 #; Lymphocytes # 1.3 10*3/uL (1.4-4.0); Lymphocytes % 17.5 % (21.2-54.2); Mean Platelet Volume 11.7 FL (9.6-12.0); Monocytes % 8.2 % (1.7-12.7); Neutrophils % 71.7 % (38.7-73.9); Platelet Count 171 T/CUMM (130-400); Red Blood Count 4.21 MC/CUMM (3.8-5.5); Red Cell Distribution Width 14.6 % (9.3-17.3); White Blood Count 7.6 T/CUMM (4-12)
[2021-01-12] MEDS: FUROSEMIDE 80 MG TABLET PO SCH (09:22)
[2021-01-12] MEDS: POTASSIUM CHLORIDE 20 MEQ TABLET PO SCH (09:22)
[2021-01-12] MEDS: VITAMIN E 400 UNIT CAPSULE PO SCH (09:22)
[2021-01-12] MEDS: LINEZOLID 600 MG TABLET PO SCH (09:22)
[2021-01-12] MEDS: TAMSULOSIN 0.4 MG CAPSULE PO SCH (09:22)
[2021-01-12] MEDS: ASPIRIN EC 81 MG TABLET PO SCH (09:23)
[2021-01-12] MEDS: CHOLECALCIFEROL 400 UNIT TABLET PO SCH (09:23)
[2021-01-12] MEDS: PANTOPRAZOLE 40 MG TABLET PO SCH (09:23)
[2021-01-12] MEDS: INSULIN LISPRO 100 UNIT/ML SUBCUT SCH ×2 (09:23→12:14)
[2021-01-12 09:29] LABS: Calcium 9.6 MG/DL (8.5-10.1); Osmolality,Calculated 282.7 MOS/KG (273-304); Potassium 3.2 MMOL/L (3.5-5.1)
[2021-01-12] MEDS: ALBUMIN 5% 25 GM/500 ML VIAL IV SCH (09:31)
[2021-01-12 11:59] VITALS: BP 99/86
[2021-01-12] MEDS ORDERED: METOPROLOL SUCCINATE XL 25 MG TABLET PO SCH (21:00)
== END 2021-01-12 16:25 | disposition home health service (06) | DRG 291 ==
LOC: SUATTDRO → N.ED 11:54 → N.EDINP 16:32 → SUATTDRO 16:32 → N.TELEN 18:18
PROVIDERS: ADMIT Internal Medicine; ATTEND Emergency Medicine

== ENCOUNTER 2021-01-19 15:11 | Observation (INO) ==
[2021-01-19] MEDS ORDERED: ONDANSETRON 4 MG/2 ML VIAL IV STA (22:37)
[2021-01-19] MEDS ORDERED: LORazepam 2 MG/1 ML VIAL IV STA (22:37)
[2021-01-19] MEDS ORDERED: SODIUM CHLORIDE 0.9% 1,000 ML IV STA (22:47)
[2021-01-19 23:40] LABS: Basophils % 0.2 % (0.0-0.8); Eosinophils % 0.4 % (0.00-10.9); Hemoglobin 10.7 GM/DL (14.0-18.0); Immature Granulocytes % 0.4 %; Immature Granulocytes Absolute 0.02 #; Lymphocytes % 17.7 % (21.2-54.2); Mean Corpuscular HGB Conc 30.6 GM/DL (32-36); Monocytes % 7.2 % (1.7-12.7); Neutrophils % 74.1 % (38.7-73.9); Platelet Count 109 T/CUMM (130-400); Red Blood Count 3.89 MC/CUMM (3.8-5.5); Red Cell Distribution Width 15.2 % (9.3-17.3); White Blood Count 5.5 T/CUMM (4-12)
[2021-01-19 23:47] LABS: Bilirubin,Urine Negative (Negative); Blood, Urine Small mg/dL (Negative); Glucose,Urine (UA) >=500 mg/dL (Negative); Hyaline Casts,Urine 10 /LPF (0-3); Ketones,Urine 5 mg/dL (Negative); Mucus,Urine Occasional /LPF (Occasional); Nitrite,Urine Negative (Negative); Protein,Urine 30 MG/DL; RBC,Urine 1 /HPF (0-4); Squamous Epithelial Cell,Urine Occasional /HPF (0-10); Urine Appearance CLEAR (Clear); Urine Color Yellow (Yellow); Urine Specific Gravity 1.013 (1.001-1.035); Urine Urobilinogen < 2.0 EU/DL (0.2-1.0)
[2021-01-20 00:04] LABS: Albumin 4.2 G/DL (3.4-5.0); Calcium 9.3 MG/DL (8.5-10.1); Osmolality,Calculated 295.1 MOS/KG (273-304); Potassium 5.1 MMOL/L (3.5-5.1); Total Protein 7.6 G/DL (6.4-8.2)
[2021-01-20] MEDS ORDERED: PIPERACILLIN/TAZOBACTAM 3,375 MG in SODIUM CHLORIDE 0.9% 100 ML IV STA (01:21)
[2021-01-20] MEDS ORDERED: GLUCAGON 1 MG VIAL IM PRN (01:59)
[2021-01-20] MEDS ORDERED: ONDANSETRON 4 MG/2 ML VIAL IV PRN (01:59)
[2021-01-20] MEDS ORDERED: DEXTROSE 50% 25 GM/50 ML SYRINGE IV PRN (01:59)
[2021-01-20] MEDS: LACTATED RINGERS 1,000 ML IV SCH (02:15)
[2021-01-20] MEDS ORDERED: cefTRIAXone 1,000 MG VIAL ONE (02:52)
[2021-01-20] MEDS: cefTRIAXone 2,000 MG in SODIUM CHLORIDE 0.9% 100 ML IV SCH (03:25)
[2021-01-20 03:31] LABS: Basophils % 0.2 % (0.0-0.8); Eosinophils % 0.4 % (0.00-10.9); Hematocrit 33.4 VOL% (42.0-52.0); Hemoglobin 10.3 GM/DL (14.0-18.0); Immature Granulocytes % 0.4 %; Immature Granulocytes Absolute 0.02 #; Lymphocytes # 1.1 10*3/uL (1.4-4.0); Mean Corpuscular HGB Conc 30.8 GM/DL (32-36); Mean Corpuscular Volume 89.3 FL (87-102); Mean Platelet Volume 11.6 FL (9.6-12.0); Platelet Count 91 T/CUMM (130-400); Red Blood Count 3.74 MC/CUMM (3.8-5.5); Red Cell Distribution Width 15.1 % (9.3-17.3); White Blood Count 5.2 T/CUMM (4-12)
[2021-01-20 03:46] LABS: Albumin 3.7 G/DL (3.4-5.0); Bilirubin,Total 0.9 MG/DL (0.20-1.00); Calcium 8.9 MG/DL (8.5-10.1); Osmolality,Calculated 291.2 MOS/KG (273-304); Total Protein 6.7 G/DL (6.4-8.2)
[2021-01-20 04:08] LABS: Hypochromasia Slight; Microcytosis Slight
[2021-01-20 04:09] LABS: Platelet Estimate Decreased
[2021-01-20] MEDS: INSULIN REGULAR 100 UNIT/ML SUBCUT SCH ×4 (08:28→21:13)
[2021-01-20] MEDS: FUROSEMIDE 40 MG/4 ML VIAL IV SCH ×2 (08:28→16:17)
[2021-01-20] MEDS ORDERED: NITROGLYCERIN SL 0.4 MG TABLET SL PRN (08:50)
[2021-01-20] MEDS ORDERED: METOPROLOL SUCCINATE XL 25 MG TABLET PO SCH (09:00)
[2021-01-20] MEDS ORDERED: ENOXAPARIN 30 MG/0.3 ML SYRINGE SUBCUT SCH (09:00)
[2021-01-20] MEDS ORDERED: LOSARTAN 25 MG TABLET PO SCH (09:00)
[2021-01-20] MEDS ORDERED: LORazepam 1 MG TABLET PO PRN (09:02)
[2021-01-20] MEDS ORDERED: INDOCYANINE GREEN 25 MG VIAL IV ONE (09:07)
[2021-01-20] MEDS: METOPROLOL TARTRATE 5 MG/5 ML VIAL IV SCH ×3 (09:30→21:12)
[2021-01-20] MEDS: ASPIRIN EC 81 MG TABLET PO SCH (09:36)
[2021-01-20] MEDS ORDERED: LIDOCAINE 1%/EPI INJ 20 ML VIAL ONE (10:10)
[2021-01-20] MEDS ORDERED: BUPIVACAINE 0.5% 50 ML VIAL ONE (10:10)
[2021-01-20] MEDS ORDERED: TISSUE ADHESIVE 1 EACH APPLICATOR TOP ONE (10:10)
[2021-01-20] MEDS ORDERED: propofoL 200 MG/20 ML VIAL IV ONE (11:15)
[2021-01-20] MEDS ORDERED: LIDOCAINE 2% 5 ML VIAL ONE (11:15)
[2021-01-20] MEDS ORDERED: SEVOFLURANE 1 UNIT/15 MINUTE INH ONE ×5 (11:15→12:23)
[2021-01-20] MEDS ORDERED: ROCURONIUM 50 MG/5 ML VIAL IV ONE (11:15)
[2021-01-20] MEDS ORDERED: fentaNYL 100 MCG/2 ML VIAL ONE (11:16)
[2021-01-20] MEDS ORDERED: ACETAMINOPHEN INJ 1,000 MG/100 ML VIAL IV ONE (12:16)
[2021-01-20] MEDS ORDERED: PHENYLEPHRINE 1 MG/10 ML SYRINGE IV ONE (12:16)
[2021-01-20] MEDS ORDERED: NEOSTIGMINE 10 MG/10 ML VIAL ONE (12:22)
[2021-01-20] MEDS ORDERED: GLYCOPYRROLATE 0.4 MG/2 ML VIAL ONE (12:22)
[2021-01-20] MEDS ORDERED: ETOMIDATE 40 MG/20 ML VIAL IV ONE (12:23)
[2021-01-20] MEDS ORDERED: SUGAMMADEX 200 MG/2 ML VIAL IV ONE (12:31)
[2021-01-20] MEDS: MORPHINE 2 MG/1 ML SYRINGE IV PRN ×2 (14:59→21:14)
[2021-01-20] MEDS ORDERED: INSULIN GLARGINE 100 UNIT/ML SUBCUT SCH (21:00)
[2021-01-20] MEDS: LINEZOLID 600 MG TABLET PO SCH (21:13)
[2021-01-20] MEDS: ESCITALOPRAM 10 MG TABLET PO SCH (21:13)
[2021-01-20] MEDS: TAMSULOSIN 0.4 MG CAPSULE PO SCH (21:13)
[2021-01-21] MEDS: METOPROLOL TARTRATE 5 MG/5 ML VIAL IV SCH ×3 (00:44→11:32)
[2021-01-21] MEDS: LACTATED RINGERS 1,000 ML IV SCH (01:31)
[2021-01-21] MEDS: cefTRIAXone 2,000 MG in SODIUM CHLORIDE 0.9% 100 ML IV SCH (02:10)
[2021-01-21] MEDS ORDERED: ACETAMINOPHEN 325 MG TABLET PO PRN (03:02)
[2021-01-21 06:43] LABS: Hematocrit 37.7 VOL% (42.0-52.0); Hemoglobin 11.6 GM/DL (14.0-18.0); Lymphocytes % 4.7 % (21.2-54.2); Mean Corpuscular HGB Conc 30.8 GM/DL (32-36); Mean Corpuscular Volume 90.4 FL (87-102); Mean Platelet Volume 11.5 FL (9.6-12.0); Monocytes % 5.4 % (1.7-12.7); Neutrophils % 89.3 % (38.7-73.9); Platelet Count 84 T/CUMM (130-400); Red Blood Count 4.17 MC/CUMM (3.8-5.5); White Blood Count 11.5 T/CUMM (4-12)
[2021-01-21 06:44] LABS: Basophils % 0.2 % (0.0-0.8); Eosinophils % 0.1 % (0.00-10.9); Immature Granulocytes % 0.3 %; Immature Granulocytes Absolute 0.04 #; Lymphocytes # 0.5 10*3/uL (1.4-4.0)
[2021-01-21 07:03] LABS: Calcium 9.1 MG/DL (8.5-10.1); Potassium 4.3 MMOL/L (3.5-5.1)
[2021-01-21 07:06] LABS: Band Neutrophils 1 % (0-10); Hypochromasia 1+; Lymphocytes 3 % (20-55); Microcytosis 1+; Platelet Estimate Decreased; Segmented Neutrophils 90 % (50-85); Total Cells Counted 100
[2021-01-21 07:07] LABS: Risk Ratio 1.54; VLDL Cholesterol 15.6 MG/DL
[2021-01-21] MEDS: INSULIN REGULAR 100 UNIT/ML SUBCUT SCH ×4 (09:16→21:10)
[2021-01-21] MEDS: ASPIRIN EC 81 MG TABLET PO SCH (09:17)
[2021-01-21] MEDS: TAMSULOSIN 0.4 MG CAPSULE PO SCH ×2 (09:17→21:10)
[2021-01-21] MEDS: ALPRAZolam 0.5 MG TABLET PO SCH (09:17)
[2021-01-21] MEDS: LINEZOLID 600 MG TABLET PO SCH ×2 (09:17→21:10)
[2021-01-21] MEDS: FUROSEMIDE 40 MG/4 ML VIAL IV SCH (09:17)
[2021-01-21] MEDS ORDERED: MAGNESIUM SULF RIDER 2 GM/50 ML PREMIX IV ONE (11:00)
[2021-01-21] MEDS ORDERED: SODIUM CHLORIDE 0.9% 250 ML IV ONE (14:18)
[2021-01-21] MEDS: ZINC OXIDE 16% PASTE 57 GM TUBE TOP SCH ×2 (15:07→21:10)
[2021-01-21] MEDS: METOPROLOL SUCCINATE XL 25 MG TABLET PO SCH (15:11)
[2021-01-21] MEDS: FUROSEMIDE 20 MG/2 ML VIAL IV SCH (16:17)
[2021-01-21] MEDS ORDERED: INSULIN GLARGINE 100 UNIT/ML SUBCUT SCH (21:00)
[2021-01-21] MEDS ORDERED: ROSUVASTATIN 20 MG TABLET PO SCH (21:00)
[2021-01-21] MEDS: ESCITALOPRAM 10 MG TABLET PO SCH (21:10)
[2021-01-22] MEDS: LACTATED RINGERS 1,000 ML IV SCH (06:23)
[2021-01-22 07:26] LABS: Basophils % 0.2 % (0.0-0.8); Eosinophils # 0.1 10*3/uL (0.0-0.87); Eosinophils % 1.2 % (0.00-10.9); Hematocrit 32.5 VOL% (42.0-52.0); Hemoglobin 9.9 GM/DL (14.0-18.0); Immature Granulocytes % 0.8 %; Immature Granulocytes Absolute 0.07 #; Lymphocytes # 0.9 10*3/uL (1.4-4.0); Lymphocytes % 9.9 % (21.2-54.2); Mean Corpuscular HGB Conc 30.5 GM/DL (32-36); Mean Corpuscular Volume 90.3 FL (87-102); Monocytes % 6.9 % (1.7-12.7); Platelet Count 61 T/CUMM (130-400); White Blood Count 9.1 T/CUMM (4-12)
[2021-01-22] MEDS: INSULIN REGULAR 100 UNIT/ML SUBCUT SCH (07:30)
[2021-01-22 07:45] LABS: Calcium 9.1 MG/DL (8.5-10.1); Osmolality,Calculated 280.2 MOS/KG (273-304); Potassium 3.6 MMOL/L (3.5-5.1)
[2021-01-22] MEDS: FUROSEMIDE 20 MG/2 ML VIAL IV SCH (08:00)
[2021-01-22 08:09] LABS: Anisocytosis 2+; Band Neutrophils 8 % (0-10); Eosinophils 1 % (0-10); Lymphocytes 8 % (20-55); Macrocytosis Slight; Ovalocytes Few; Platelet Estimate Decreased; Segmented Neutrophils 77 % (50-85); Total Cells Counted 100
[2021-01-22] MEDS: ZINC OXIDE 16% PASTE 57 GM TUBE TOP SCH (09:45)
[2021-01-22] MEDS: TAMSULOSIN 0.4 MG CAPSULE PO SCH (09:45)
[2021-01-22] MEDS: cefTRIAXone 2,000 MG in SODIUM CHLORIDE 0.9% 100 ML IV SCH (09:45)
[2021-01-22] MEDS: ALPRAZolam 0.5 MG TABLET PO SCH (09:45)
[2021-01-22] MEDS: LINEZOLID 600 MG TABLET PO SCH (09:45)
[2021-01-22] MEDS: ASPIRIN EC 81 MG TABLET PO SCH (09:45)
[2021-01-22] MEDS: METOPROLOL SUCCINATE XL 25 MG TABLET PO SCH (10:51)
[2021-01-22 11:25] VITALS: BP 93/53
== END 2021-01-22 11:57 | disposition home health service (06) ==
LOC: N.ED 15:11 → SUATTDRO 01-20 01:59 → INTOOBSV 01-20 01:59 → N.EDINP 01-20 01:59 → N.5E 01-20 14:55
PROVIDERS: ADMIT Internal Medicine; ATTEND Internal Medicine

== ENCOUNTER 2021-04-07 16:47 | Inpatient (IN) ==
[2021-04-07 20:10] LABS: Albumin 2.7 G/DL (3.4-5.0); Bilirubin,Total 0.5 MG/DL (0.20-1.00); Osmolality,Calculated 278.4 MOS/KG (273-304); Potassium 3.9 MMOL/L (3.5-5.1); Total Protein 7.4 G/DL (6.4-8.2)
[2021-04-07 20:18] LABS: Hyaline Casts,Urine 45 /LPF (0-3); Mucus,Urine Occasional /LPF (Occasional); RBC,Urine 3 /HPF (0-4); Squamous Epithelial Cell,Urine Occasional /HPF (0-10); Urine Appearance CLEAR (Clear)
[2021-04-07 20:19] LABS: Bilirubin,Urine Negative (Negative); Blood, Urine Negative (Negative); Glucose,Urine (UA) 100 mg/dL (Negative); Ketones,Urine Negative (Negative); Nitrite,Urine Negative (Negative); Protein,Urine TRACE MG/DL; Urine Color Light Yellow (Yellow); Urine Urobilinogen 0.2 EU/DL (<2.0)
[2021-04-07 20:59] LABS: Basophils % 0.2 % (0.0-0.8); Eosinophils # 0.1 10*3/uL (0.0-0.87); Eosinophils % 0.8 % (0.00-10.9); Hematocrit 36.4 VOL% (42.0-52.0); Hemoglobin 11.7 GM/DL (14.0-18.0); Immature Granulocytes % 1.3 %; Immature Granulocytes Absolute 0.14 #; Lymphocytes # 1.5 10*3/uL (1.4-4.0); Mean Corpuscular HGB Conc 32.1 GM/DL (32-36); Mean Corpuscular Volume 87.7 FL (87-102); Mean Platelet Volume 11.3 FL (9.6-12.0); Monocytes % 7.3 % (1.7-12.7); Neutrophils % 76.4 % (38.7-73.9); Platelet Count 238 T/CUMM (130-400); Red Blood Count 4.15 MC/CUMM (3.8-5.5); Red Cell Distribution Width 14.4 % (9.3-17.3); White Blood Count 10.6 T/CUMM (4-12)
[2021-04-07] MEDS ORDERED: cefTRIAXone 1,000 MG in SODIUM CHLORIDE 0.9% 100 ML IV STA (21:24)
[2021-04-07] MEDS ORDERED: MEROPENEM 1,000 MG in SODIUM CHLORIDE 0.9% 100 ML IV ONE (21:32)
[2021-04-07] MEDS ORDERED: MEROPENEM 1,000 MG VIAL ONE (22:04)
[2021-04-07] MEDS ORDERED: SODIUM CHLORIDE 0.9% 100 ML IV ONE (22:05)
[2021-04-07] MEDS ORDERED: GLUCAGON 1 MG VIAL IM PRN (22:21)
[2021-04-07] MEDS ORDERED: ONDANSETRON 4 MG/2 ML VIAL IV PRN (22:21)
[2021-04-07] MEDS ORDERED: hydrALAZINE 20 MG/1 ML VIAL IV PRN (22:21)
[2021-04-07] MEDS ORDERED: SIMETHICONE CHEW 125 MG TABLET PO PRN (22:21)
[2021-04-07] MEDS ORDERED: MELATONIN 3 MG TABLET PO PRN (22:21)
[2021-04-07] MEDS ORDERED: ACETAMINOPHEN 325 MG TABLET PO PRN (22:21)
[2021-04-07] MEDS ORDERED: DEXTROSE 10% 250 ML BAG IV PRN (22:59)
[2021-04-07] MEDS ORDERED: MORPHINE 4 MG/1 ML VIAL IV PRN (23:00)
[2021-04-07] MEDS: SODIUM CHLORIDE 0.9% 1,000 ML IV SCH (23:36)
[2021-04-07] MEDS: ESCITALOPRAM 10 MG TABLET PO SCH (23:36)
[2021-04-07] MEDS: METOPROLOL SUCCINATE XL 25 MG TABLET PO SCH (23:36)
[2021-04-07] MEDS: TAMSULOSIN 0.4 MG CAPSULE PO SCH (23:36)
[2021-04-08 04:41] LABS: Basophils % 0.2 % (0.0-0.8); Eosinophils # 0.1 10*3/uL (0.0-0.87); Eosinophils % 1.1 % (0.00-10.9); Hematocrit 32.9 VOL% (42.0-52.0); Hemoglobin 10.6 GM/DL (14.0-18.0); Immature Granulocytes % 1.2 %; Lymphocytes # 1.6 10*3/uL (1.4-4.0); Lymphocytes % 18.5 % (21.2-54.2); Mean Corpuscular HGB Conc 32.2 GM/DL (32-36); Mean Corpuscular Volume 86.8 FL (87-102); Mean Platelet Volume 9.9 FL (9.6-12.0); Monocytes % 7.6 % (1.7-12.7); Neutrophils % 71.4 % (38.7-73.9); Platelet Count 243 T/CUMM (130-400); Red Blood Count 3.79 MC/CUMM (3.8-5.5); Red Cell Distribution Width 14.5 % (9.3-17.3); White Blood Count 8.4 T/CUMM (4-12)
[2021-04-08 04:53] LABS: INR 1.1; PT Patient Result 12.6 SECS (10.5-12.0)
[2021-04-08 04:54] LABS: Partial Thromboplastin Time 29.9 SECS (23.8-32.1)
[2021-04-08 04:56] LABS: Calcium 8.7 MG/DL (8.5-10.1); Osmolality,Calculated 282.1 MOS/KG (273-304); Potassium 3.4 MMOL/L (3.5-5.1)
[2021-04-08] MEDS: AMPICILLIN/SULBACTAM 3,000 MG in SODIUM CHLORIDE 0.9% 100 ML IV SCH ×2 (06:10→16:39)
[2021-04-08] MEDS: INSULIN REGULAR 100 UNIT/ML SUBCUT SCH ×4 (07:50→21:44)
[2021-04-08] MEDS: ASPIRIN EC 81 MG TABLET PO SCH (09:03)
[2021-04-08] MEDS: POTASSIUM CHLORIDE 20 MEQ TABLET PO SCH (09:03)
[2021-04-08] MEDS: TAMSULOSIN 0.4 MG CAPSULE PO SCH ×2 (09:03→21:38)
[2021-04-08] MEDS: DOCUSATE SODIUM 100 MG CAPSULE PO SCH ×2 (09:03→21:38)
[2021-04-08] MEDS: PANTOPRAZOLE 40 MG TABLET PO SCH (09:04)
[2021-04-08] MEDS: ENOXAPARIN 40 MG/0.4 ML SYRINGE SUBCUT SCH (09:04)
[2021-04-08] MEDS: FUROSEMIDE 40 MG TABLET PO SCH (09:04)
[2021-04-08] MEDS: METOPROLOL SUCCINATE XL 25 MG TABLET PO SCH ×2 (09:04→21:46)
[2021-04-08] MEDS: SODIUM CHLORIDE 0.9% 1,000 ML IV SCH (12:34)
[2021-04-08] MEDS ORDERED: DOXYCYCLINE MONOHYDRATE SUSP 5 MG/ML 60 ML/BOTTLE PO SCH (21:00)
[2021-04-08] MEDS: ESCITALOPRAM 10 MG TABLET PO SCH (21:38)
[2021-04-08] MEDS: DOXYCYCLINE HYCLATE 100 MG CAPSULE PO SCH (21:38)
[2021-04-08] MEDS: ROSUVASTATIN 20 MG TABLET PO SCH (21:40)
[2021-04-08] MEDS: BASAGLAR SUBCUT SCH (21:41)
[2021-04-09] MEDS: AMPICILLIN/SULBACTAM 3,000 MG in SODIUM CHLORIDE 0.9% 100 ML IV SCH ×3 (00:56→16:45)
[2021-04-09] MEDS: SODIUM CHLORIDE 0.9% 1,000 ML IV SCH (01:02)
[2021-04-09 06:45] LABS: Basophils % 0.2 % (0.0-0.8); Eosinophils # 0.2 10*3/uL (0.0-0.87); Hematocrit 35.7 VOL% (42.0-52.0); Hemoglobin 11.1 GM/DL (14.0-18.0); Immature Granulocytes % 1.6 %; Immature Granulocytes Absolute 0.14 #; Lymphocytes # 1.5 10*3/uL (1.4-4.0); Lymphocytes % 17.8 % (21.2-54.2); Mean Corpuscular HGB Conc 31.1 GM/DL (32-36); Mean Corpuscular Volume 89.5 FL (87-102); Mean Platelet Volume 10.6 FL (9.6-12.0); Monocytes % 7.1 % (1.7-12.7); Neutrophils % 71.3 % (38.7-73.9); Platelet Count 263 T/CUMM (130-400); Red Blood Count 3.99 MC/CUMM (3.8-5.5); Red Cell Distribution Width 14.5 % (9.3-17.3); White Blood Count 8.7 T/CUMM (4-12)
[2021-04-09 06:57] LABS: Calcium 9.3 MG/DL (8.5-10.1); Osmolality,Calculated 282.8 MOS/KG (273-304); Potassium 3.8 MMOL/L (3.5-5.1)
[2021-04-09] MEDS: INSULIN REGULAR 100 UNIT/ML SUBCUT SCH ×4 (08:17→20:41)
[2021-04-09] MEDS: DOXYCYCLINE HYCLATE 100 MG CAPSULE PO SCH ×2 (08:17→20:44)
[2021-04-09] MEDS: TAMSULOSIN 0.4 MG CAPSULE PO SCH ×2 (08:18→20:44)
[2021-04-09] MEDS: ASPIRIN EC 81 MG TABLET PO SCH (08:18)
[2021-04-09] MEDS: DOCUSATE SODIUM 100 MG CAPSULE PO SCH ×2 (08:18→20:44)
[2021-04-09] MEDS: METOPROLOL SUCCINATE XL 25 MG TABLET PO SCH ×2 (08:18→20:45)
[2021-04-09] MEDS: PANTOPRAZOLE 40 MG TABLET PO SCH (08:18)
[2021-04-09] MEDS: ENOXAPARIN 40 MG/0.4 ML SYRINGE SUBCUT SCH (08:18)
[2021-04-09] MEDS: FUROSEMIDE 40 MG TABLET PO SCH (08:18)
[2021-04-09] MEDS: POTASSIUM CHLORIDE 20 MEQ TABLET PO SCH (08:18)
[2021-04-09] MEDS: BASAGLAR SUBCUT SCH (20:40)
[2021-04-09] MEDS: ROSUVASTATIN 20 MG TABLET PO SCH (20:44)
[2021-04-09] MEDS: ESCITALOPRAM 10 MG TABLET PO SCH (20:45)
[2021-04-09] MEDS ORDERED: INSULIN GLARGINE 100 UNIT/ML SUBCUT SCH (21:00)
[2021-04-10] MEDS: AMPICILLIN/SULBACTAM 3,000 MG in SODIUM CHLORIDE 0.9% 100 ML IV SCH ×3 (01:44→17:44)
[2021-04-10 05:42] LABS: Basophils % 0.1 % (0.0-0.8); Eosinophils # 0.3 10*3/uL (0.0-0.87); Eosinophils % 3.6 % (0.00-10.9); Immature Granulocytes % 1.4 %; Immature Granulocytes Absolute 0.11 #; Lymphocytes # 1.5 10*3/uL (1.4-4.0); Lymphocytes % 18.7 % (21.2-54.2); Mean Corpuscular HGB Conc 31.4 GM/DL (32-36); Mean Corpuscular Volume 88.6 FL (87-102); Mean Platelet Volume 10.2 FL (9.6-12.0); Monocytes % 7.2 % (1.7-12.7); Platelet Count 274 T/CUMM (130-400); Red Blood Count 3.95 MC/CUMM (3.8-5.5); Red Cell Distribution Width 14.2 % (9.3-17.3); White Blood Count 7.8 T/CUMM (4-12)
[2021-04-10 06:10] LABS: Calcium 8.9 MG/DL (8.5-10.1); Osmolality,Calculated 282.7 MOS/KG (273-304); Potassium 3.5 MMOL/L (3.5-5.1)
[2021-04-10] MEDS: INSULIN REGULAR 100 UNIT/ML SUBCUT SCH ×4 (09:27→20:51)
[2021-04-10] MEDS: ASPIRIN EC 81 MG TABLET PO SCH (11:51)
[2021-04-10] MEDS: TAMSULOSIN 0.4 MG CAPSULE PO SCH ×2 (11:52→20:49)
[2021-04-10] MEDS: DOCUSATE SODIUM 100 MG CAPSULE PO SCH ×2 (11:52→20:50)
[2021-04-10] MEDS: ENOXAPARIN 40 MG/0.4 ML SYRINGE SUBCUT SCH (11:53)
[2021-04-10] MEDS: POTASSIUM CHLORIDE 20 MEQ TABLET PO SCH (11:53)
[2021-04-10] MEDS: FUROSEMIDE 40 MG TABLET PO SCH (11:53)
[2021-04-10] MEDS: METOPROLOL SUCCINATE XL 25 MG TABLET PO SCH ×2 (11:54→20:51)
[2021-04-10] MEDS: PANTOPRAZOLE 40 MG TABLET PO SCH (11:54)
[2021-04-10] MEDS: DOXYCYCLINE HYCLATE 100 MG CAPSULE PO SCH ×2 (11:55→20:49)
[2021-04-10] MEDS: ESCITALOPRAM 10 MG TABLET PO SCH (20:51)
[2021-04-10] MEDS: ROSUVASTATIN 20 MG TABLET PO SCH (20:54)
[2021-04-10] MEDS: BASAGLAR SUBCUT SCH (20:55)
[2021-04-10] MEDS ORDERED: INSULIN GLARGINE 100 UNIT/ML SUBCUT SCH (21:00)
[2021-04-11] MEDS: AMPICILLIN/SULBACTAM 3,000 MG in SODIUM CHLORIDE 0.9% 100 ML IV SCH ×2 (00:28→09:43)
[2021-04-11] MEDS: INSULIN REGULAR 100 UNIT/ML SUBCUT SCH ×2 (09:39→12:15)
[2021-04-11] MEDS: ASPIRIN EC 81 MG TABLET PO SCH (09:40)
[2021-04-11] MEDS: TAMSULOSIN 0.4 MG CAPSULE PO SCH (09:41)
[2021-04-11] MEDS: FUROSEMIDE 40 MG TABLET PO SCH (09:41)
[2021-04-11] MEDS: DOCUSATE SODIUM 100 MG CAPSULE PO SCH (09:41)
[2021-04-11] MEDS: POTASSIUM CHLORIDE 20 MEQ TABLET PO SCH (09:41)
[2021-04-11] MEDS: PANTOPRAZOLE 40 MG TABLET PO SCH (09:42)
[2021-04-11] MEDS: ENOXAPARIN 40 MG/0.4 ML SYRINGE SUBCUT SCH (09:42)
[2021-04-11] MEDS: METOPROLOL SUCCINATE XL 25 MG TABLET PO SCH (09:43)
[2021-04-11] MEDS: DOXYCYCLINE HYCLATE 100 MG CAPSULE PO SCH (09:44)
[2021-04-11 14:54] VITALS: BP 130/76
== END 2021-04-11 15:19 | disposition home or self-care (01) | DRG 728 ==
LOC: N.ED 16:47 → N.EDINP 22:21 → SUATTDRO 22:21 → N.EDINP 04-08 13:52 → N.5E 04-08 14:37
PROVIDERS: ADMIT Internal Medicine; ATTEND Internal Medicine Geriatric Medicine

== ENCOUNTER 2022-03-11 15:56 | Inpatient (IN) ==
[2022-03-11] MEDS ORDERED: ASPIRIN CHEW 81 MG TABLET PO STA (16:38)
[2022-03-11 16:52] LABS: Basophils % 0.2 % (0.0-0.8); Eosinophils # 0.2 10*3/uL (0.0-0.87); Eosinophils % 2.6 % (0.00-10.9); Hematocrit 40.7 VOL% (42.0-52.0); Hemoglobin 13.6 GM/DL (14.0-18.0); Immature Granulocytes % 0.5 %; Immature Granulocytes Absolute 0.03 #; Lymphocytes # 1.7 10*3/uL (1.4-4.0); Lymphocytes % 26.5 % (21.2-54.2); Mean Corpuscular HGB Conc 33.4 GM/DL (32-36); Mean Corpuscular Volume 89.3 FL (87-102); Mean Platelet Volume 10.6 FL (9.6-12.0); Monocytes # 0.6 10*3/uL (0.11-0.8); Neutrophils % 61.2 % (38.7-73.9); Platelet Count 177 T/CUMM (130-400); Red Blood Count 4.56 MC/CUMM (3.8-5.5); Red Cell Distribution Width 13.7 % (9.3-17.3); White Blood Count 6.5 T/CUMM (4-12)
[2022-03-11 17:05] LABS: PT Patient Result 10.6 SECS (10.1-12.1); Partial Thromboplastin Time 27.7 SECS (23.7-32.9)
[2022-03-11 17:07] LABS: Albumin 3.7 G/DL (3.4-5.0); Bilirubin,Total 0.5 MG/DL (0.20-1.00); Calcium 8.7 MG/DL (8.5-10.1); Potassium 4.2 MMOL/L (3.5-5.1)
[2022-03-11] MEDS ORDERED: hydrALAZINE 20 MG/1 ML VIAL IV PRN (19:22)
[2022-03-11] MEDS ORDERED: ACETAMINOPHEN 325 MG TABLET PO PRN (19:22)
[2022-03-11] MEDS ORDERED: MORPHINE 2 MG/1 ML SYRINGE IV PRN (19:22)
[2022-03-11] MEDS ORDERED: ONDANSETRON 4 MG/2 ML VIAL IV PRN (19:22)
[2022-03-11] MEDS ORDERED: NITROGLYCERIN SL 0.4 MG TABLET SL PRN (19:25)
[2022-03-11] MEDS ORDERED: ALUM/MAG/SIMETH/LIDO VISC 1:1 30 ML BOTTLE PO STA (19:25)
[2022-03-11 19:42] LABS: % Iron Saturation 22.6 % (18-50)
[2022-03-11 20:16] LABS: Folate > 24.00 NG/ML (5.38-24.0); Vitamin B12 1200 PG/ML (211-911)
[2022-03-11 21:21] LABS: Bacteria,Urine Occasional /HPF (Few); Hyaline Casts,Urine 3 /LPF (0-3); Mucus,Urine Occasional /LPF (Occasional); RBC,Urine 1 /HPF (0-4); Sperm,Urine Few /HPF (Negative); Squamous Epithelial Cell,Urine Occasional /HPF (0-10)
[2022-03-11 21:22] LABS: Urine Appearance Clear (Clear); Urine Color Yellow (Yellow)
[2022-03-11 21:23] LABS: Bilirubin,Urine Negative (Negative); Blood, Urine Trace mg/dL (Negative); Glucose,Urine (UA) 500 mg/dL (Negative); Ketones,Urine Negative (Negative); Nitrite,Urine Negative (Negative); Protein,Urine Negative (Negative); Urine Urobilinogen 0.2 eU/dL (<2.0)
[2022-03-11] MEDS: FUROSEMIDE 40 MG TABLET PO SCH (22:56)
[2022-03-11] MEDS: TAMSULOSIN 0.4 MG CAPSULE PO SCH (22:56)
[2022-03-11] MEDS: ESCITALOPRAM 10 MG TABLET PO SCH (22:57)
[2022-03-11] MEDS: ROSUVASTATIN 20 MG TABLET PO SCH (22:57)
[2022-03-11] MEDS: METOPROLOL SUCCINATE XL 25 MG TABLET PO SCH (22:57)
[2022-03-11] MEDS: ENOXAPARIN 40 MG/0.4 ML SYRINGE SUBCUT SCH (22:57)
[2022-03-11] MEDS: SODIUM CHLORIDE 0.9% 1,000 ML IV SCH (22:59)
[2022-03-11] MEDS ORDERED: DEXTROSE 10% 250 ML BAG IV PRN (23:50)
[2022-03-11] MEDS ORDERED: GLUCAGON 1 MG VIAL IM PRN (23:50)
[2022-03-12 05:52] LABS: Basophils % 0.5 % (0.0-0.8); Eosinophils # 0.2 10*3/uL (0.0-0.87); Eosinophils % 3.5 % (0.00-10.9); Hematocrit 39.9 VOL% (42.0-52.0); Hemoglobin 13.3 GM/DL (14.0-18.0); Immature Granulocytes % 0.5 %; Immature Granulocytes Absolute 0.03 #; Lymphocytes # 1.9 10*3/uL (1.4-4.0); Lymphocytes % 32.2 % (21.2-54.2); Mean Corpuscular HGB Conc 33.3 GM/DL (32-36); Mean Corpuscular Volume 89.5 FL (87-102); Mean Platelet Volume 10.8 FL (9.6-12.0); Monocytes # 0.6 10*3/uL (0.11-0.8); Monocytes % 10.5 % (1.7-12.7); Neutrophils % 52.8 % (38.7-73.9); Platelet Count 161 T/CUMM (130-400); Red Blood Count 4.46 MC/CUMM (3.8-5.5); Red Cell Distribution Width 13.5 % (9.3-17.3)
[2022-03-12 06:28] LABS: Albumin 3.3 G/DL (3.4-5.0); Bilirubin,Total 0.4 MG/DL (0.20-1.00); Calcium 8.8 MG/DL (8.5-10.1); Osmolality,Calculated 286.4 MOS/KG (273-304); Potassium 3.5 MMOL/L (3.5-5.1); Risk Ratio 4.43; Thyroid Stimulating Hormone 2.53 uIU/ml (0.358-3.74); Total Protein 6.7 G/DL (6.4-8.2); VLDL Cholesterol 28.4 MG/DL
[2022-03-12] MEDS: INSULIN REGULAR 100 UNIT/ML SUBCUT SCH ×4 (07:35→20:18)
[2022-03-12] MEDS: TAMSULOSIN 0.4 MG CAPSULE PO SCH ×2 (08:23→20:40)
[2022-03-12] MEDS: PANTOPRAZOLE 40 MG TABLET PO SCH (08:23)
[2022-03-12] MEDS: ASPIRIN EC 81 MG TABLET PO SCH (08:23)
[2022-03-12] MEDS: METOPROLOL SUCCINATE XL 25 MG TABLET PO SCH ×2 (08:23→20:39)
[2022-03-12] MEDS: FUROSEMIDE 40 MG TABLET PO SCH (08:23)
[2022-03-12] MEDS: MULTIVITAMIN (CENTRUM) TABLET PO SCH (08:23)
[2022-03-12] MEDS: CHOLECALCIFEROL 1,000 UNIT TABLET PO SCH (08:24)
[2022-03-12] MEDS ORDERED: PANTOPRAZOLE 40 MG TABLET PO SCH (09:00)
[2022-03-12] MEDS ORDERED: metOLazone 5 MG TABLET PO PRN (09:00)
[2022-03-12] MEDS: SODIUM CHLORIDE 0.9% 1,000 ML IV SCH (12:25)
[2022-03-12] MEDS: LOSARTAN 25 MG TABLET PO SCH (14:19)
[2022-03-12] MEDS: FUROSEMIDE 40 MG/4 ML VIAL IV SCH (16:45)
[2022-03-12] MEDS: ROSUVASTATIN 20 MG TABLET PO SCH (20:39)
[2022-03-12] MEDS: ESCITALOPRAM 10 MG TABLET PO SCH (20:40)
[2022-03-12] MEDS: ENOXAPARIN 40 MG/0.4 ML SYRINGE SUBCUT SCH (20:42)
[2022-03-13] MEDS: SODIUM CHLORIDE 0.9% 1,000 ML IV SCH (00:35)
[2022-03-13 05:08] LABS: Basophils % 0.3 % (0.0-0.8); Eosinophils # 0.2 10*3/uL (0.0-0.87); Eosinophils % 3.5 % (0.00-10.9); Hematocrit 38.7 VOL% (42.0-52.0); Hemoglobin 12.7 GM/DL (14.0-18.0); Immature Granulocytes % 0.3 %; Immature Granulocytes Absolute 0.02 #; Lymphocytes # 2.1 10*3/uL (1.4-4.0); Lymphocytes % 32.9 % (21.2-54.2); Mean Corpuscular HGB Conc 32.8 GM/DL (32-36); Mean Corpuscular Volume 90.6 FL (87-102); Mean Platelet Volume 10.7 FL (9.6-12.0); Monocytes # 0.6 10*3/uL (0.11-0.8); Monocytes % 9.6 % (1.7-12.7); Neutrophils % 53.4 % (38.7-73.9); Platelet Count 147 T/CUMM (130-400); Red Blood Count 4.27 MC/CUMM (3.8-5.5); Red Cell Distribution Width 13.7 % (9.3-17.3); White Blood Count 6.4 T/CUMM (4-12)
[2022-03-13 05:26] LABS: Calcium 8.3 MG/DL (8.5-10.1); Osmolality,Calculated 283.5 MOS/KG (273-304); Potassium 3.5 MMOL/L (3.5-5.1)
[2022-03-13] MEDS: INSULIN REGULAR 100 UNIT/ML SUBCUT SCH ×4 (07:59→21:15)
[2022-03-13] MEDS ORDERED: REGADENOSON 0.4 MG/5 ML SYRINGE IV ONE (08:32)
[2022-03-13] MEDS: ASPIRIN EC 81 MG TABLET PO SCH (10:19)
[2022-03-13] MEDS: LOSARTAN 25 MG TABLET PO SCH (10:19)
[2022-03-13] MEDS: TAMSULOSIN 0.4 MG CAPSULE PO SCH ×2 (10:19→21:14)
[2022-03-13] MEDS: PANTOPRAZOLE 40 MG TABLET PO SCH (10:19)
[2022-03-13] MEDS: MULTIVITAMIN (CENTRUM) TABLET PO SCH (10:19)
[2022-03-13] MEDS: METOPROLOL SUCCINATE XL 25 MG TABLET PO SCH ×2 (10:19→21:14)
[2022-03-13] MEDS: FUROSEMIDE 40 MG/4 ML VIAL IV SCH (10:20)
[2022-03-13] MEDS: CHOLECALCIFEROL 1,000 UNIT TABLET PO SCH (10:20)
[2022-03-13] MEDS: ROSUVASTATIN 20 MG TABLET PO SCH (21:13)
[2022-03-13] MEDS: ESCITALOPRAM 10 MG TABLET PO SCH (21:13)
[2022-03-13] MEDS: ENOXAPARIN 40 MG/0.4 ML SYRINGE SUBCUT SCH (21:14)
[2022-03-14] MEDS ORDERED: DIAZEPAM 5 MG TABLET PO ONE ×2 (06:00→13:15)
[2022-03-14] MEDS ORDERED: diphenhydrAMINE CAP 25 MG CAPSULE PO ONE ×2 (06:00→13:15)
[2022-03-14 06:41] LABS: Basophils % 0.3 % (0.0-0.8); Eosinophils # 0.2 10*3/uL (0.0-0.87); Eosinophils % 3.7 % (0.00-10.9); Hematocrit 40.2 VOL% (42.0-52.0); Hemoglobin 13.1 GM/DL (14.0-18.0); Immature Granulocytes % 0.3 %; Immature Granulocytes Absolute 0.02 #; Lymphocytes # 1.8 10*3/uL (1.4-4.0); Lymphocytes % 29.2 % (21.2-54.2); Mean Corpuscular HGB Conc 32.6 GM/DL (32-36); Mean Corpuscular Volume 92.2 FL (87-102); Mean Platelet Volume 10.9 FL (9.6-12.0); Monocytes # 0.6 10*3/uL (0.11-0.8); Monocytes % 8.9 % (1.7-12.7); Neutrophils % 57.6 % (38.7-73.9); Platelet Count 151 T/CUMM (130-400); Red Blood Count 4.36 MC/CUMM (3.8-5.5); White Blood Count 6.2 T/CUMM (4-12)
[2022-03-14 06:58] LABS: Calcium 8.5 MG/DL (8.5-10.1); Osmolality,Calculated 293.1 MOS/KG (273-304)
[2022-03-14] MEDS: PANTOPRAZOLE 40 MG TABLET PO SCH (09:27)
[2022-03-14] MEDS: CHOLECALCIFEROL 1,000 UNIT TABLET PO SCH (09:27)
[2022-03-14] MEDS: METOPROLOL SUCCINATE XL 25 MG TABLET PO SCH ×2 (09:27→21:19)
[2022-03-14] MEDS: ASPIRIN EC 81 MG TABLET PO SCH (09:27)
[2022-03-14] MEDS: MULTIVITAMIN (CENTRUM) TABLET PO SCH (09:27)
[2022-03-14] MEDS: LOSARTAN 25 MG TABLET PO SCH (09:27)
[2022-03-14] MEDS: TAMSULOSIN 0.4 MG CAPSULE PO SCH ×2 (09:27→21:19)
[2022-03-14] MEDS: FUROSEMIDE 40 MG TABLET PO SCH (09:28)
[2022-03-14] MEDS: SODIUM CHLORIDE 0.9% 1,000 ML IV SCH (13:15)
[2022-03-14] MEDS: INSULIN REGULAR 100 UNIT/ML SUBCUT SCH ×3 (13:30→21:20)
[2022-03-14] MEDS ORDERED: HEPARIN/NACL 0.9% 2 UNITS/ML 1,000 UNIT/500 ML BAG IV ONE ×2 (14:41→14:42)
[2022-03-14] MEDS ORDERED: fentaNYL 100 MCG/2 ML VIAL ONE ×2 (15:03→15:25)
[2022-03-14] MEDS ORDERED: MIDAZOLAM 2 MG/2 ML VIAL ONE ×3 (15:03→15:25)
[2022-03-14] MEDS ORDERED: ACETAMINOPHEN/CODEINE 300-30 MG TABLET PO PRN (16:06)
[2022-03-14] MEDS: ESCITALOPRAM 10 MG TABLET PO SCH (21:19)
[2022-03-14] MEDS: ENOXAPARIN 40 MG/0.4 ML SYRINGE SUBCUT SCH (21:19)
[2022-03-14] MEDS: ROSUVASTATIN 20 MG TABLET PO SCH (21:19)
[2022-03-15] MEDS: SODIUM CHLORIDE 0.9% 1,000 ML IV SCH ×2 (00:40→10:48)
[2022-03-15 05:13] LABS: Basophils % 0.3 % (0.0-0.8); Eosinophils # 0.2 10*3/uL (0.0-0.87); Eosinophils % 2.8 % (0.00-10.9); Hematocrit 38.3 VOL% (42.0-52.0); Hemoglobin 12.6 GM/DL (14.0-18.0); Immature Granulocytes % 0.3 %; Immature Granulocytes Absolute 0.02 #; Lymphocytes # 1.5 10*3/uL (1.4-4.0); Lymphocytes % 24.2 % (21.2-54.2); Mean Corpuscular HGB Conc 32.9 GM/DL (32-36); Mean Corpuscular Volume 91.4 FL (87-102); Mean Platelet Volume 10.7 FL (9.6-12.0); Monocytes # 0.6 10*3/uL (0.11-0.8); Monocytes % 8.7 % (1.7-12.7); Neutrophils % 63.7 % (38.7-73.9); Platelet Count 155 T/CUMM (130-400); Red Blood Count 4.19 MC/CUMM (3.8-5.5); Red Cell Distribution Width 13.8 % (9.3-17.3); White Blood Count 6.3 T/CUMM (4-12)
[2022-03-15 05:43] LABS: Osmolality,Calculated 291.1 MOS/KG (273-304); Potassium 3.8 MMOL/L (3.5-5.1)
[2022-03-15] MEDS: PANTOPRAZOLE 40 MG TABLET PO SCH (09:10)
[2022-03-15] MEDS: FUROSEMIDE 40 MG TABLET PO SCH (09:10)
[2022-03-15] MEDS: TAMSULOSIN 0.4 MG CAPSULE PO SCH (09:10)
[2022-03-15] MEDS: METOPROLOL SUCCINATE XL 25 MG TABLET PO SCH (09:10)
[2022-03-15] MEDS: ASPIRIN EC 81 MG TABLET PO SCH (09:10)
[2022-03-15] MEDS: MULTIVITAMIN (CENTRUM) TABLET PO SCH (09:10)
[2022-03-15] MEDS: LOSARTAN 25 MG TABLET PO SCH (09:10)
[2022-03-15] MEDS: CHOLECALCIFEROL 1,000 UNIT TABLET PO SCH (09:10)
[2022-03-15] MEDS: INSULIN REGULAR 100 UNIT/ML SUBCUT SCH ×2 (10:49→12:39)
[2022-03-15] MEDS ORDERED: TICAGRELOR 90 MG TABLET PO ONE (11:52)
[2022-03-15 12:32] VITALS: BP 123/61
[2022-03-15] MEDS ORDERED: TICAGRELOR 90 MG TABLET PO SCH (21:00)
== END 2022-03-15 12:59 | disposition home or self-care (01) | DRG 287 ==
LOC: N.EDINP 15:56 → N.ED 15:56 → SUATTDRO 19:21 → N.2W 21:56
PROVIDERS: ADMIT Internal Medicine; ATTEND Internal Medicine Geriatric Medicine